=== PATIENT | male | born 1940 | race Caucasian/White ===

== ENCOUNTER 2017-05-14 14:17 | Inpatient (IN) | payer MEDICARE, OTHER ==
[~2017-05-14] VITALS: Ht 167.6 cm; Wt 58.0 kg
[~2017-05-14 14:17] MED LIST: LORAZEPAM 2 MG INJ ONE
[2017-05-14] MEDS ORDERED: LORAZEPAM 2 MG INJ ONE (14:26)
[2017-05-14] MEDS ORDERED: LEVETIRACETAM 500 MG (PMX) 100 ML IVPB ONE (14:30)
[2017-05-14] MEDS ORDERED: LORAZEPAM 2 MG INJ IV ONE ×3 (14:30→16:00)
[2017-05-14 14:38] LABS: ADD SCAN DIFF NO
[2017-05-14 14:40] LABS: BASOPHIL # 0.1 10^3/ul (0.0-0.1); BASOPHILS % 0.5 % (0.0-2.0); EOSINOPHILS % 0.1 % (0.0-7.0); HEMATOCRIT 46.4 % (42.0-52.0); LYMPHOCYTES # 4.2 10^3/ul (0.8-2.9); LYMPHOCYTES % 34.6 % (15.0-51.0); MEAN CORPUSCULAR HEMOGLOBIN 36.5 pg (29.0-33.0); MEAN CORPUSCULAR HGB CONC 32.3 g/dl (32.0-37.0); MEAN CORPUSCULAR VOLUME 112.9 fl (82.0-101.0); MEAN PLATELET VOLUME 9.2 fl (7.4-10.4); MONOCYTE # 0.7 10^3/ul (0.3-0.9); MONOCYTES % 5.3 % (0.0-11.0); NEUTROPHIL # 7.2 10^3/ul (1.6-7.5); NEUTROPHILS % 59.1 % (39.0-77.0); PLATELET COUNT 201 10^3/UL (140-415); RED BLOOD COUNT 4.11 10^6/ul (4.70-6.10); RED CELL DISTRIBUTION WIDTH 12.2 % (11.5-14.5); WHITE BLOOD COUNT 12.2 10^3/ul (4.8-10.8)
[2017-05-14 14:56] LABS: PARTIAL THROMBOPLASTIN TIME 25.2 Sec (25.0-35.0)
[2017-05-14 14:59] LABS: ALANINE AMINOTRANSFERASE 43 IU/L (13-69); ALBUMIN 5.6 g/dl (3.3-4.9); ALKALINE PHOSPHATASE 69 IU/L (42-121); ANION GAP 40 (8-16); ASPARTATE AMINO TRANSFERASE 76 IU/L (15-46); BILIRUBIN,INDIRECT 1.4 mg/dl (0-1.1); BILIRUBIN,TOTAL 1.4 mg/dl (0.2-1.3); BLOOD UREA NITROGEN 15 mg/dl (7-20); CHLORIDE 103 mmol/L (97-110); CREATININE 0.88 mg/dl (0.61-1.24); GLUCOSE 299 mg/dl (70-220); POTASSIUM 3.8 mmol/L (3.5-5.1); SODIUM 149 mmol/L (135-144); TOTAL PROTEIN 9.1 g/dl (6.1-8.1)
[2017-05-14 15:05] LABS: INR 1.07; PROTIME 13.9 Sec (12.2-14.2); PT RATIO 1.1
[2017-05-14 15:14] LABS: ETHANOL < 10.0 mg/dl
[2017-05-14 15:17] LABS: CARBON DIOXIDE 10 mmol/L (21-31)
--- NOTE | 2017-05-14 15:19 | RADRPT ---
PROCEDURE: XR Chest 1 View. CLINICAL INDICATION: Seizure TECHNIQUE: AP view of the chest was obtained. COMPARISON: None. FINDINGS: The heart size is within normal limits. Calcified atherosclerosis is noted in the aorta. The lungs are hyperexpanded. Diffuse mild interstitial prominence is seen in both lungs. Atelectasis versus mild patchy infiltrates are seen in the right upper lobe. Subsegmental atelectasis is noted at the right lung base and in the left upper lobe. The osseous structures are osteopenic, but appear grossl y intact. Degenerative changes are identified in both shoulders. IMPRESSION: Calcified atherosclerosis in the aorta. Hyperexpanded lungs with diffuse mild interstitial prominence in both lungs. Interstitial prominenc e could be chronic. Findings could reflect COPD. Atelectasis versus mild patchy infiltrates in the right upper lobe. Atelectasis at the right lung base and in the left upper lobe. RPTAT: AA .Filipe Cueva MD, MD Date Time Electronically viewed and signed by .Filipe Cueva MD, on 05/14/2017 15:19 .P/
[2017-05-14] MEDS ORDERED: ERGO500037 PO (15:22)
[2017-05-14] MEDS ORDERED: ASPI-664 PO (15:22)
[2017-05-14] MEDS ORDERED: ALEN70TA30 PO (15:23)
[2017-05-14] MEDS ORDERED: BUDE6HFA INHALATION (15:24)
[2017-05-14] MEDS ORDERED: FLUT16SP17 NASAL (15:25)
[2017-05-14] MEDS ORDERED: LEVE500T8 PO (15:26)
[2017-05-14] MEDS ORDERED: EZET10TA3 PO (15:26)
[2017-05-14 15:27] LABS: ADD UMIC YES; UR ASCORBIC ACID NEGATIVE (NEGATIVE); UR BACTERIA FEW /HPF (NONE SEEN); UR BILIRUBIN (Dip) NEGATIVE (NEGATIVE); UR BLOOD (Dip) NEGATIVE (NEGATIVE); UR CLARITY SLIGHTLY CLOUDY (CLEAR); UR COLOR AMBER (YELLOW); UR GLUCOSE (Dip) NEGATIVE (NEGATIVE); UR KETONES (Dip) 2+ mg/dL (NEGATIVE); UR LEUKOCYTE ESTERASE (Dip) NEGATIVE Leu/ul (NEGATIVE); UR MUCUS MODERATE /HPF (NONE SEEN); UR NITRITE (Dip) NEGATIVE (NEGATIVE); UR RBC 13 /HPF (0-5); UR SPECIFIC GRAVITY (Dip) 1.026 (1.003-1.030); UR TOTAL PROTEIN (Dip) 3+ mg/dl (NEGATIVE); UR UROBILINOGEN (Dip) 1+ mg/dL (NEGATIVE)
[2017-05-14] MEDS ORDERED: NIT4 SL (15:27)
[2017-05-14] MEDS ORDERED: ESCI20TA38 PO (15:28)
[2017-05-14] MEDS ORDERED: TIOT18CA INHALATION (15:28)
[2017-05-14] MEDS ORDERED: LINA145C PO (15:28)
[2017-05-14] MEDS ORDERED: VALS160T20 PO (15:29)
[2017-05-14] MEDS ORDERED: DEXL60CA2 PO (15:29)
[2017-05-14] MEDS ORDERED: MELO-109 PO (15:30)
[2017-05-14] MEDS ORDERED: LORA0.5T PO (15:30)
[2017-05-14] MEDS ORDERED: ICOS1CAP PO (15:31)
[2017-05-14] MEDS ORDERED: ATOR20TA38 PO (15:31)
[2017-05-14] MEDS ORDERED: CLON-379 PO (15:32)
[2017-05-14 15:48] LABS: BARBITURATES NEGATIVE (NEGATIVE); BENZODIAZEPINES NEGATIVE (NEGATIVE); CANNABINOIDS NEGATIVE (NEGATIVE); COCAINE NEGATIVE (NEGATIVE); OPIATES NEGATIVE (NEGATIVE)
--- NOTE | 2017-05-14 15:54 | RADRPT ---
PROCEDURE: CT Brain without contrast. CLINICAL INDICATION: Seizure TECHNIQUE: CT scan of the brain was performed on a multidetector high-resolution CT scan. Axial im aging was obtained of the brain without contrast administration. Coronal and sagittal reformatted i mages were obtained from the axial source images. Standard CT scan of the head without contrast prot ocols were performed. The total exam CTDI equals 40.49 mGy and the total exam DLP equals 841.95 mGy-cm. One or more of the following dose reduction techniques were used: - Automated exposure control. - Adjustment of the mA and/or kV according to patient size. Use of iterative reconstruction technique. COMPARISON: None. FINDINGS: The ventricular system and peripheral CSF spaces are proportionately prominent consisten t with moderate generalized cerebral volume loss. Negative for intracranial masses hemorrhages or m idline shift. There is extensive periventricular deep white matter changes that is nonspecific and consistent with chronic microvascular ischemic disease. The ward-white matter junction is unremarka ble. The bones and calvarium are intact. There is bilateral maxillary sinus mucous retention cyst. The paranasal sinuses are are otherwise unremarkable. Mastoids are unremarkable. IMPRESSION: 1. No evidence of intracranial masses hemorrhages or midline shift. 2. Moderate generalized cerebral volume loss and extensive nonspecific chronic microvascular ischem ic changes. 3. An MRI of the brain may be helpful for further evaluation. RPTAT:AAJJ Physician Jose Alfredo Date Time Electronically viewed and signed by Physician Jose Alfredo on 05/14/2017 15:54 BM/
[2017-05-14 16:11] LABS: AADO2 Arterial 111.8 mmHg (7.0-24.0); Allen Test ACCEPTAB; Arterial Base Excess -2.2 mmol/L (-3.0-3); Arterial COHb 0.9 % (0.0-3.0); Arterial Fraction of Oxyhgb 92.4 % (93.0-99.0); Arterial HCO3 22.9 mmol/L (22.0-26.0); Arterial MetHb 0.4 % (0.0-1.5); Arterial Total Hemglobin 15.5 g/dl (12.0-18.0); MODE NASAL CANNULA
--- NOTE | 2017-05-14 18:16 | HP ---
Date/Time of Note Date/Time of Note DATE: 05/14/17 TIME: 17:58 Assessment/Plan VTE Prophylaxis VTE Prophylaxis Intervention: heparin Assessment/Plan Assessment/Plan 77-year-old male who who presented with seizures managed as follows: 1. Status epilepticus/breakthrough seizures 2 acute encephalopathy secondary to seizures open bracket post ictal state] 3. Hypertension: Suboptimal control 4. Sepsis secondary to UTI 5. Probable mild hyperosmolar non-ketotic hypoglycemia contributing to #1 6. Hyperbilirubinemia 7. Developing aspiration pneumonia 8. Heavy alcohol and tobacco user PLAN: Admit ICU Patient is high risk to develop respiratory failure, low threshold for endotracheal intubation if necessary. Patient may also benefit from NG tube placement if intubated. Repeat stat BMP to assess if patient requires insulin drip, further interventions after result is reviewed Empiric antibiotics, blood cultures, urine cultures Serial lab work every 4 hours interventions that indicated Seizure precautions/Keppra therapy/EEG/neurology consult/as needed Ativan IV on N.p.o. for now/as needed antihypertensives HPI/ROS Admit Date/Time Admit Date/Time 05/04/17 . Hx of Present Illness 77-year-old male with a history of seizure disorder which started 8 months ago after he was found to have a tiny intracerebral bleed. Since then he has been on Keppra and per his family has been weaned down to 1 tablet twice daily. The patient unfortunately also has a history of heavy alcohol alcohol as well as tobacco use. Per his family he had been drinking heavily over the last 2 days, his choice of drink is vodka, and has had 6 seizures in total between home and in the emergency room. He has received multiple doses of Ativan and is currently postictal, he is barely responsive but he is maintaining his airway, I would be called to admit. Per the family had not complained of any fever cough and shortness of breath chest pain prior to seizure happening. No further history obtainable due to patient's obtunded status. ROS unobtainable PMH/Family/Social Past Medical History * Tiny cerebral bleed * Subsequent seizure d/o Past Surgical History Past Surgical Hx: no surgical history Family History Significant Family History: other (No family hx of seizures) Social History Alcohol Use: heavy Smoking Status: Current every day smoker Drug Use: none Exam/Review of Systems Vital Signs Vitals Vital Signs Date Time Temp Pulse Resp B/P Pulse Ox O2 Delivery O2 Flow Rate FiO2 05/14/17 17:46 97 18 160/101 94 Nasal Cannula 6.0 05/14/17 14:24 97.5 Exam Constitutional: other (asthenic, ), No alert, No oriented Psych: other (unable to assess) Head: atraumatic Eyes: PERRL, icteric (mildly) ENMT: No intubated, No mucosa pink and moist Neck: supple Respiratory: diminished breath sounds, No labored breathing, No wheezing Cardiovascular: regular rate and rhythm, No murmurs/extra sounds Gastrointestinal: bowel sounds, non-tender, soft Genitourinary - Male: nl penis, nl scrotum Extremities: No edema Neurological: other (obtunded), No nl mental status Labs Result Diagram: 05/14/17 1431 05/14/17 1431 Procedures Procedures Laboratory Tests Test 05/14/17 14:31 05/14/17 14:40 05/14/17 15:59 White Blood Count 12.210^3/ul Red Blood Count 4.1110^6/ul Hemoglobin 15.0g/dl Hematocrit 46.4% Mean Corpuscular Volume 112.9fl Mean Corpuscular Hemoglobin 36.5pg Mean Corpuscular Hemoglobin Concent 32.3g/dl Red Cell Distribution Width 12.2% Platelet Count 79455^3/UL Mean Platelet Volume 9.2fl Neutrophils % 59.1% Lymphocytes % 34.6% Monocytes % 5.3% Eosinophils % 0.1% Basophils % 0.5% Nucleated Red Blood Cells % 0.0/100WBC Neutrophils # 7.210^3/ul Lymphocytes # 4.210^3/ul Monocytes # 0.710^3/ul Eosinophils # 0.010^3/ul Basophils # 0.110^3/ul Nucleated Red Blood Cells # 0.010^3/ul Prothrombin Time 13.9Sec Prothrombin Time Ratio 1.1 INR International Normalized Ratio 1.07 Activated Partial Thromboplast Time 25.2Sec Sodium Level 149mmol/L Potassium Level 3.8mmol/L Chloride Level 103mmol/L Carbon Dioxide Level 10mmol/L Anion Gap 40 Blood Urea Nitrogen 15mg/dl Creatinine 0.88mg/dl Glucose Level 299mg/dl Calcium Level 11.0mg/dl Total Bilirubin 1.4mg/dl Direct Bilirubin 0.00mg/dl Indirect Bilirubin 1.4mg/dl Aspartate Amino Transf (AST/SGOT) 76IU/L Alanine Aminotransferase (ALT/SGPT) 43IU/L Alkaline Phosphatase 69IU/L Total Protein 9.1g/dl Albumin 5.6g/dl Globulin 3.50g/dl Albumin/Globulin Ratio 1.60 Ethyl Alcohol Level < 10.0mg/dl Urine Color [facility] Urine Clarity SLIGHTLY CLOUDY Urine pH 5.0 Urine Specific [place] 1.026 Urine Ketones 2+mg/dL Urine Nitrite NEGATIVEmg/dL Urine Bilirubin NEGATIVEmg/dL Urine Urobilinogen 1+mg/dL Urine Leukocyte Esterase NEGATIVELeu/ul Urine Microscopic RBC 13/HPF Urine Microscopic WBC 2/HPF Urine Bacteria FEW/HPF Urine Mucus MODERATE/HPF Urine Hemoglobin NEGATIVEmg/dL Urine Glucose NEGATIVEmg/dL Urine Total Protein 3+mg/dl Urine Opiates Screen NEGATIVE Urine Barbiturates NEGATIVE Urine Amphetamines Screen NEGATIVE Urine Benzodiazepines Screen NEGATIVE Urine Cocaine Screen NEGATIVE Urine Cannabinoids NEGATIVE Blood Gas Specimen Source Blood arterial Arterial Blood Date Drawn 05/14/2017 4:00:11 PM Arterial Blood pH (Temp corrected) 7.372 Arterial Blood pCO2 (Temp correct) 40.3mmhg Arterial Blood pO2 (Temp corrected) 76.4mmHG Arterial Blood HCO3 22.9mmol/L Arterial Blood Base Excess -2.2mmol/L Arterial Blood Oxygen Saturation 93.6mmHG Beto Test ACCEPTAB Arterial Blood Gas Puncture Site Right Radial Arterial Blood Carboxyhemoglobin 0.9% Arterial Blood Methemoglobin 0.4% Blood Gas A-a O2 Differential 111.8mmHg Oxyhemoglobin Percent 92.4% Total Hemoglobin 15.5g/dl Blood Gas Temperature 37.0C Blood Gas Actual Respiration Rate 22 Blood Gas Modality NASAL CANNULA FiO2 33.0% Blood Gas Notified Whom KB Blood Gas Notified Time 05/14/2017 4:11:08 PM Current Medications Medications (Trade) Dose Ordered Sig/[place] Route PRN Reason Start Time Stop Time Status Last Admin Dose Admin Lorazepam (Ativan) 1 mg ONCE ONCE IV 05/14/17 14:30 05/14/17 14:31 DC 05/14/17 14:44 1 MG Lorazepam 1 mg 1 mg ONCE ONCE IV 05/14/17 14:30 05/14/17 14:31 DC 05/14/17 14:44 1 MG Levetiracetam (Keppra 500 Mg/ 100ml (Pmx)) 100 ml @ 400 mls/hr ONCE ONCE IVPB 05/14/17 14:30 05/14/17 14:44 DC 05/14/17 14:50 400 MLS/HR Lorazepam (Ativan) 2 mg ONCE ONCE IV 05/14/17 16:00 05/14/17 16:01 DC 05/14/17 15:51 2 MG PROCEDURE: XR Chest 1 View. CLINICAL INDICATION: Seizure TECHNIQUE: AP view of the chest was obtained. COMPARISON: None. FINDINGS: The heart size is within normal limits. Calcified atherosclerosis is noted in the aorta. The lungs are hyperexpanded. Diffuse mild interstitial prominence is seen in both lungs. Atelectasis versus mild patchy infiltrates are seen in the right upper lobe. Subsegmental atelectasis is noted at the right lung base and in the left upper lobe. The osseous structures are osteopenic, but appear grossly intact. Degenerative changes are identified in both shoulders. IMPRESSION: Calcified atherosclerosis in the aorta. Hyperexpanded lungs with diffuse mild interstitial prominence in both lungs. Interstitial prominence could be chronic. Findings could reflect COPD. Atelectasis versus mild patchy infiltrates in the right upper lobe. Atelectasis at the right lung base and in the left upper lobe. PROCEDURE: CT Brain without contrast. CLINICAL INDICATION: Seizure TECHNIQUE: CT scan of the brain was performed on a multidetector high- resolution CT scan. Axial imaging was obtained of the brain without contrast administration. Coronal and sagittal reformatted images were obtained from the axial source images. Standard CT scan of the head without contrast protocols were performed. The total exam CTDI equals 40.49 mGy and the total exam DLP equals 841.95 mGy- cm. One or more of the following dose reduction techniques were used: - Automated exposure control. - Adjustment of the mA and/or kV according to patient size. Use of iterative reconstruction technique. COMPARISON: None. FINDINGS: The ventricular system and peripheral CSF spaces are proportionately prominent consistent with moderate generalized cerebral volume loss. Negative for intracranial masses hemorrhages or midline shift. There is extensive periventricular deep white matter changes that is nonspecific and consistent with chronic microvascular ischemic disease. The ward-white matter junction is unremarkable. The bones and calvarium are intact. There is bilateral maxillary sinus mucous retention cyst. The paranasal sinuses are are otherwise unremarkable. Mastoids are unremarkable. IMPRESSION: 1. No evidence of intracranial masses hemorrhages or midline shift. 2. Moderate generalized cerebral volume loss and extensive nonspecific chronic microvascular ischemic changes. 3. An MRI of the brain may be helpful for further evaluation. RPTAT:AAJJ Physician Jose Alfredo Date Time Electronically viewed and signed by Physician Jose Alfredo on 05/14/2017 15:54 BM/ CC: BELTRAN BRITTON MD, BOLATITO M. May 14, 2017 18:16
[2017-05-14] MEDS ORDERED: SOD CHLORIDE 0.45% 1,000 ML IV SCH (18:30)
[2017-05-14] MEDS ORDERED: ONDANSETRON 4 MG INJ IV PRN (18:30)
[2017-05-14] MEDS ORDERED: SOD CHLORIDE 0.9% 1,000 ML IV SCH (18:30)
[2017-05-14] MEDS ORDERED: INSULIN HUMAN REGULAR 100 UNIT in SOD CHLORIDE 0.9% 99 ML IV SCH (18:30)
[2017-05-14] MEDS ORDERED: ACCU-CHEK XX SCH (18:30)
[2017-05-14] MEDS ORDERED: DEXTROSE 50% 50 ML SYRINGE IV PRN ×2 (18:30)
[2017-05-14] MEDS ORDERED: LORAZEPAM 2 MG INJ IV PRN (18:30)
[2017-05-14] MEDS ORDERED: PIPER-TAZO 3.375 GM IV (PMX) 100 ML IVPB ONE (19:00)
--- NOTE | 2017-05-14 19:01 | ERA ---
ER Documentation Chief Complaint Date/Time DATE: 05/14/17 TIME: On arrival Chief Complaint SEIZURE HPI The patient is a 77-year-old male, presenting to the ER because of recurrent seizure. The history was obtained from hardware engineering manager initially, it was later obtained from the daughter who came to the ER. He was well, been drinking over the weekend. When the daughter left him around 1:30 PM, he was well. He later had a seizure at home, the then called 911. This usually lasted for approximately 1 minute, generalized tonic-clonic. He had another seizure in 2 to the ER witnessed by EMS. He had another 3 seizure in the ER that was aborted with Ativan 1 mg IV, 1 mg IV, and 2 mg IV. He remains postictal in the emergency department. His last seizure was a year ago. He has been taking Keppra for his seizure disorder. Has not been sick recently Past medical history: Seizure disorder, hypertension, dyslipidemia ROS All systems reviewed and are negative except as per history of present illness. Medications Home Meds Reported Medications Clonidine Hcl* (Clonidine Hcl*) 0.1 Mg Tab, 0.1 MG PO DAILY Y for HTN, TAB 05/14/17 Icosapent Ethyl (VASCEPA) 1 Gm Capsule, 1 GM PO BID, CAP 05/14/17 Atorvastatin Calcium* (Atorvastatin Calcium*) 20 Mg Tablet, 20 MG PO QHS, #30 TAB 05/14/17 Lorazepam* (Lorazepam*) 0.5 Mg Tablet, 0.5 MG PO HS Y for ANXIETY, TAB 05/14/17 Meloxicam* (Meloxicam*) 7.5 Mg Tablet, 7.5 MG PO DAILY, #30 TAB 05/14/17 Valsartan* (Diovan*) 160 Mg Tablet, 160 MG PO DAILY, TAB 05/14/17 Dexlansoprazole (Dexilant) 60 Mg , 60 MG PO DAILY, #30 CAP 05/14/17 Linaclotide (LINZESS) 145 Mcg Capsule, 145 MCG PO DAILY, #30 CAP 05/14/17 Escitalopram Oxalate* (Escitalopram Oxalate*) 20 Mg Tablet, 20 MG PO DAILY, #30 TAB 05/14/17 Tiotropium [place]* (Spiriva*) 18 Mcg Cap.w.dev, 1 CAP INHALATION DAILY, #30 CAP 05/14/17 Nitroglycerin* (Nitrostat*) 0.4 Mg Tab.subl, 0.4 MG SL Q5MIN Y for CHEST PAIN, BOTTLE 05/14/17 Levetiracetam* (Levetiracetam*) 500 Mg Tablet, 500 MG PO BID, TAB 05/14/17 Ezetimibe* (Zetia*) 10 Mg Tablet, 10 MG PO DAILY, TAB 05/14/17 Fluticasone Propionate* (Fluticasone Propionate* Nasal) 50 Mcg/[place] - 16 Gm [place].susp, 1 SPRAY NASAL BID, #1 BOTTLE TO EACH NOSTRIL 05/14/17 Budesonide-Formoterol Fumarate* (Symbicort*) 160-4.5 Hfa.aer.ad, 2 PUFF INHALATION BID, #1 EACH 05/14/17 Alendronate Sodium* (Fosamax*) 70 Mg Tablet, 70 MG PO Q7D, #4 TAB 05/14/17 Ergocalciferol (Vitamin D2) (VITAMIN D2) 50,000 Unit Capsule, 26347 UNIT PO Q7D , CAP 05/14/17 Aspirin* (Aspirin* EC) 81 Mg Tablet.dr, 81 MG PO DAILY, TAB 05/14/17 Allergies Allergies: Coded Allergies: No Known Allergy (Unverified , 05/14/17) PMhx/Soc Hx Miscellaneous Medical Probl: Yes (SZ) Smoking Status: Unknown if ever smoked Physical Exam Vitals Vital Signs Date Time Temp Pulse Resp B/P Pulse Ox O2 Delivery O2 Flow Rate FiO2 05/14/17 17:46 97 18 160/101 94 Nasal Cannula 6.0 05/14/17 16:21 117 18 149/87 94 Nasal Cannula 6.0 05/14/17 15:27 120 18 137/90 94 Nasal Cannula 6.0 05/14/17 15:10 125 18 145/90 96 Nasal Cannula 6.0 05/14/17 14:59 132 18 148/92 98 Non Rebreather 15.0 05/14/17 14:52 98 15.0 05/14/17 14:44 139 32 155/95 98 Non Rebreather 15.0 05/14/17 14:33 162 32 170/101 94 Non Rebreather 05/14/17 14:24 97.5 160 20 198/109 93 Physical Exam Const: Postictal when arrived Head: Atraumatic. Eyes: Normal Conjunctiva. ENT: Normal External Ears, Nose and Mouth. Neck: Full range of motion. No meningismus. Resp: Clear to auscultation anterior and lateral Cardio: Regular but tachycardic Abd: Soft, non distended, normal bowel sounds, non tender. Skin: No petechiae or rashes. Back: No midline or flank tenderness. Ext: No cyanosis, or edema. Neur: Unable to perform due to his condition Psych: Unable to perform due to his condition Result Diagram: 05/14/17 1431 05/14/17 1431 Results 24 hrs Laboratory Tests Test 05/14/17 14:31 05/14/17 14:40 05/14/17 15:59 White Blood Count 12.210^3/ul Red Blood Count 4.1110^6/ul Hemoglobin 15.0g/dl Hematocrit 46.4% Mean Corpuscular Volume 112.9fl Mean Corpuscular Hemoglobin 36.5pg Mean Corpuscular Hemoglobin Concent 32.3g/dl Red Cell Distribution Width 12.2% Platelet Count 20048^3/UL Mean Platelet Volume 9.2fl Neutrophils % 59.1% Lymphocytes % 34.6% Monocytes % 5.3% Eosinophils % 0.1% Basophils % 0.5% Nucleated Red Blood Cells % 0.0/100WBC Neutrophils # 7.210^3/ul Lymphocytes # 4.210^3/ul Monocytes # 0.710^3/ul Eosinophils # 0.010^3/ul Basophils # 0.110^3/ul Nucleated Red Blood Cells # 0.010^3/ul Prothrombin Time 13.9Sec Prothrombin Time Ratio 1.1 INR International Normalized Ratio 1.07 Activated Partial Thromboplast Time 25.2Sec Sodium Level 149mmol/L Potassium Level 3.8mmol/L Chloride Level 103mmol/L Carbon Dioxide Level 10mmol/L Anion Gap 40 Blood Urea Nitrogen 15mg/dl Creatinine 0.88mg/dl Glucose Level 299mg/dl Calcium Level 11.0mg/dl Total Bilirubin 1.4mg/dl Direct Bilirubin 0.00mg/dl Indirect Bilirubin 1.4mg/dl Aspartate Amino Transf (AST/SGOT) 76IU/L Alanine Aminotransferase (ALT/SGPT) 43IU/L Alkaline Phosphatase 69IU/L Total Protein 9.1g/dl Albumin 5.6g/dl Globulin 3.50g/dl Albumin/Globulin Ratio 1.60 Ethyl Alcohol Level < 10.0mg/dl Urine Color PHUC Urine Clarity SLIGHTLY CLOUDY Urine pH 5.0 Urine Specific [place] 1.026 Urine Ketones 2+mg/dL Urine Nitrite NEGATIVEmg/dL Urine Bilirubin NEGATIVEmg/dL Urine Urobilinogen 1+mg/dL Urine Leukocyte Esterase NEGATIVELeu/ul Urine Microscopic RBC 13/HPF Urine Microscopic WBC 2/HPF Urine Bacteria FEW/HPF Urine Mucus MODERATE/HPF Urine Hemoglobin NEGATIVEmg/dL Urine Glucose NEGATIVEmg/dL Urine Total Protein 3+mg/dl Urine Opiates Screen NEGATIVE Urine Barbiturates NEGATIVE Urine Amphetamines Screen NEGATIVE Urine Benzodiazepines Screen NEGATIVE Urine Cocaine Screen NEGATIVE Urine Cannabinoids NEGATIVE Blood Gas Specimen Source Blood arterial Arterial Blood Date Drawn 05/14/2017 4:00:11 PM Arterial Blood pH (Temp corrected) 7.372 Arterial Blood pCO2 (Temp correct) 40.3mmhg Arterial Blood pO2 (Temp corrected) 76.4mmHG Arterial Blood HCO3 22.9mmol/L Arterial Blood Base Excess -2.2mmol/L Arterial Blood Oxygen Saturation 93.6mmHG Beto Test ACCEPTAB Arterial Blood Gas Puncture Site Right Radial Arterial Blood Carboxyhemoglobin 0.9% Arterial Blood Methemoglobin 0.4% Blood Gas A-a O2 Differential 111.8mmHg Oxyhemoglobin Percent 92.4% Total Hemoglobin 15.5g/dl Blood Gas Temperature 37.0C Blood Gas Actual Respiration Rate 22 Blood Gas Modality NASAL CANNULA FiO2 33.0% Blood Gas Notified Whom KB Blood Gas Notified Time 05/14/2017 4:11:08 PM Current Medications Medications (Trade) Dose Ordered Sig/[place] Route PRN Reason Start Time Stop Time Status Last Admin Dose Admin Lorazepam (Ativan) 1 mg ONCE ONCE IV 05/14/17 14:30 05/14/17 14:31 DC 05/14/17 14:44 Lorazepam 1 mg 1 mg ONCE ONCE IV 05/14/17 14:30 05/14/17 14:31 DC 05/14/17 14:44 Levetiracetam (Keppra 500 Mg/ 100ml (Pmx)) 100 ml @ 400 mls/hr ONCE ONCE IVPB 05/14/17 14:30 05/14/17 14:44 DC 05/14/17 14:50 Lorazepam 2 mg 2 mg ONCE ONCE IV 05/14/17 16:00 05/14/17 16:01 DC 05/14/17 15:51 Sodium Chloride 1,000 ml @ 100 mls/hr Q10H IV 05/14/17 18:30 05/14/17 18:30 DC Levetiracetam (Keppra 500 Mg/ 100ml (Pmx)) 100 ml @ 400 mls/hr Q12 IVPB 05/14/17 21:00 UNV Lorazepam (Ativan) 2 mg Q2H PRN IV seizures 05/14/17 18:30 Famotidine (Pepcid Iv) 20 mg BID IV 05/14/17 21:00 Ondansetron HCl 4 mg 4 mg Q6H PRN IV NAUSEA AND/OR VOMITING 05/14/17 18:30 Sodium Chloride 1,000 ml @ 100 mls/hr Q10H IV 05/14/17 18:30 Piperacillin Sod/ Tazobactam Sod (Zosyn 3.375gm/ 100 ml (Pmx)) 100 ml @ 200 mls/hr Q8 IVPB 05/14/17 22:00 Dextrose (D50w Syringe) 50 ml Q15M PRN IV For BS 50 or less 05/14/17 18:30 UNV Dextrose 25 ml 25 ml Q15M PRN IV BS between 50-70 05/14/17 18:30 UNV Insulin Human Regular/Sodium Chloride (Novolin-R/NS) 100 ml @ 0 mls/hr DKA PROTOCOL IV 05/14/17 18:30 UNV Diagnostic Test (Pha) (Accu-Chek) 1 ea Q1H XX 05/14/17 18:30 UNV Miscellaneous Information (* Miscellaneous Pharmacy Order) HYPOGLYCEMIA TREATMENT HYPOGLYCEM PROTOCOL PRN XX Hypoglycemia (BS < 70) 05/14/17 18:30 UNV Procedures/[place] [id number] Radiology Main Line: [phone] DIAGNOSTIC IMAGING REPORT Patient: FLAQUITO CAROLINA : 1940 Age: 77 Sex: M MR #: [id number] DOS: 05/14/17 1428 Ordering MD: BELTRAN BRITTON MD Location: E/R Room/Bed: PROCEDURE: XR Chest 1 View. CLINICAL INDICATION: Seizure TECHNIQUE: AP view of the chest was obtained. COMPARISON: None. FINDINGS: The heart size is within normal limits. Calcified atherosclerosis is noted in the aorta. The lungs are hyperexpanded. Diffuse mild interstitial prominence is seen in both lungs. Atelectasis versus mild patchy infiltrates are seen in the right upper lobe. Subsegmental atelectasis is noted at the right lung base and in the left upper lobe. The osseous structures are osteopenic, but appear grossly intact. Degenerative changes are identified in both shoulders. IMPRESSION: Calcified atherosclerosis in the aorta. Hyperexpanded lungs with diffuse mild interstitial prominence in both lungs. Interstitial prominence could be chronic. Findings could reflect COPD. Atelectasis versus mild patchy infiltrates in the right upper lobe. Atelectasis at the right lung base and in the left upper lobe. RPTAT: AA .Filipe Cueva MD, MD Date Time Electronically viewed and signed by .Filipe Cueva MD, MD on 05/14/2017 15:19 .P/ CC: BELTRAN BRITTON MD [place] [id number] Radiology Main Line: [phone] DIAGNOSTIC IMAGING REPORT Patient: FLAQUITO CAROLINA : 1940 Age: 77 Sex: M MR #: [id number] DOS: 05/14/17 1428 Ordering MD: BELTRAN BRITTON MD Location: E/R Room/Bed: PROCEDURE: CT Brain without contrast. CLINICAL INDICATION: Seizure TECHNIQUE: CT scan of the brain was performed on a multidetector high- resolution CT scan. Axial imaging was obtained of the brain without contrast administration. Coronal and sagittal reformatted images were obtained from the axial source images. Standard CT scan of the head without contrast protocols were performed. The total exam CTDI equals 40.49 mGy and the total exam DLP equals 841.95 mGy- cm. One or more of the following dose reduction techniques were used: - Automated exposure control. - Adjustment of the mA and/or kV according to patient size. Use of iterative reconstruction technique. COMPARISON: None. FINDINGS: The ventricular system and peripheral CSF spaces are proportionately prominent consistent with moderate generalized cerebral volume loss. Negative for intracranial masses hemorrhages or midline shift. There is extensive periventricular deep white matter changes that is nonspecific and consistent with chronic microvascular ischemic disease. The ward-white matter junction is unremarkable. The bones and calvarium are intact. There is bilateral maxillary sinus mucous retention cyst. The paranasal sinuses are are otherwise unremarkable. Mastoids are unremarkable. IMPRESSION: 1. No evidence of intracranial masses hemorrhages or midline shift. 2. Moderate generalized cerebral volume loss and extensive nonspecific chronic microvascular ischemic changes. 3. An MRI of the brain may be helpful for further evaluation. RPTAT:AAJJ Physician Jose Alfredo Date Time Electronically viewed and signed by Physician Jose Alfredo on 05/14/2017 15:54 BM/ CC: BELTRAN BRITTON MD EKG: Read by emergency physician Rate/Rhythm: Sinus tachycardia 173 beats/min QRS, ST, T-waves: No ST elevation, no T inversion, shortened GA interval, LAD , septal Q waves Impression: Abnormal EKG MEDICAL MAKING DECISION: The patient is a 77-year-old male, presenting with acute status epilepticus, acute encephalopathy, acute mental acidosis, acute hyperglycemia, suspected aspiration pneumonia. He went treated with Ativan 1 mg IV, 1 mg IV, 2 mg IV approximately 3 minutes apart due to seizure and Keppra 500 mg IV with good response. He had a Nicole catheter inserted, treated empirically for suspected aspiration pneumonia with Zosyn IV and 1 L normal saline. He also has acute hyperglycemia, most likely due to acute stress versus new onset diabetes He remains posterior to the emergency department, and was intact. The differential diagnoses considered include but are not limited to medication non-compliance, alcohol intoxication or withdrawal, drug intoxication or withdrawal, endocrine disorder, trauma, CVA, tumor, metabolic encephalopathy, septic encephalopathy. Critical Care: Time: 35 minutes excluding all billable procedures. Treatments/Evaluations: Close monitoring and treatment of unstable vital signs, cardiorespiratory, and neurologic status, while maintaining tight balance of fluid, respiratory, and cardiac interventions. Departure Diagnosis: Primary Impression: Status epilepticus Additional Impressions: Encephalopathy Pneumonia Metabolic acidosis Hyperglycemia Abnormal LFTs Condition: Critical Comments I discussed the findings with the patient. I discussed the patient with the on- call hospitalist Dr. Pope at 4 PM who was made aware of the lab, the treatment, the patient condition. The patient is admitted to ICU BELTRAN BRITTON MD May 14, 2017 19:01
[2017-05-14] MEDS ORDERED: SOD CHLORIDE 0.9% 1,000 ML IV ONE (19:30)
[2017-05-14] MEDS ORDERED: LEVETIRACETAM 500 MG (PMX) 100 ML IVPB SCH (21:00)
--- NOTE | 2017-05-14 21:29 | CONS ---
Date/Time of Note Date/Time of Note DATE: 05/14/17 TIME: 21:17 Assessment/Plan Assessment/Plan Chief Complaint/Hosp Course PHYSICAL EXAMINATION: GENERAL: Not in acute distress, lying in bed. HEENT: Normocephalic, atraumatic head. NECK: No carotid bruits. No thyromegaly. LUNGS: Clear to auscultation bilaterally. CARDIAC: Normal cardiac rhythm and sounds. ABDOMEN: Soft. EXTREMITIES: No cyanosis, clubbing, or edema. Tenderness to palpation in the right buttock and lumbar spinous processes. NEUROLOGIC: He is lethargic, arousable by voice, looks bilaterally, not verbal. Cranial nerve examination shows intact visual munoz bilaterally to threat. Pupils round, reactive to light from 3 to 2 mm bilaterally. Extraocular movements intact without nystagmus. Symmetrical face. Preserved facial strength and sensation. Corneals and gag OK. Motor strength examination is preserved in all extremities. Normal bulk, tone. Moves all extremities symmetrically to pain. Deep tendon reflexes 1+ upper extremities, absent in lower extremities. Downgoing toes bilaterally. No tremor. IMPRESSION: Seizure d/o. ETOH abuse. Increase Keppra 1500 bid. EEG no ongoing seizures, c/w encephalopathy. Watch for ETOH withdrawal, consider small benzodiazepines Problems: Consultation Date/Type/Reason Admit Date/Time 05/04/17 . Type of Consultation: neurology Hx of Present Illness 77 y/o with hx of seizures in April 2016 and few years prior, in May was in [facility] , had small right parietal ischemic CVA. Started on keppra 500 bid, no seizures since. Binge drinking x last 3 days. Vomited today. Multiple seizures today. Past Medical History a.fib Medical History: coronary artery disease, hypertension Family History Significant Family History: no pertinent family hx Social History Alcohol Use: heavy Smoking Status: Current every day smoker Drug Use: none Exam/Review of Systems Vital Signs Vitals Vital Signs Date Time Temp Pulse Resp B/P Pulse Ox O2 Delivery O2 Flow Rate FiO2 05/14/17 20:38 105 19 160/97 97 Nasal Cannula 5.0 05/14/17 14:24 97.5 Results Result Diagram: 05/14/17 1431 05/14/17 1431 Results 24 hrs Laboratory Tests Test 05/14/17 14:31 05/14/17 14:40 05/14/17 15:59 05/14/17 19:53 White Blood Count 12.2 H Red Blood Count 4.11 L Hemoglobin 15.0 Hematocrit 46.4 Mean Corpuscular Volume 112.9 H Mean Corpuscular Hemoglobin 36.5 H Mean Corpuscular Hemoglobin Concent 32.3 Red Cell Distribution Width 12.2 Platelet Count 201 Mean Platelet Volume 9.2 Neutrophils % 59.1 Lymphocytes % 34.6 Monocytes % 5.3 Eosinophils % 0.1 Basophils % 0.5 Nucleated Red Blood Cells % 0.0 Neutrophils # 7.2 Lymphocytes # 4.2 H Monocytes # 0.7 Eosinophils # 0.0 Basophils # 0.1 Nucleated Red Blood Cells # 0.0 Prothrombin Time 13.9 Prothrombin Time Ratio 1.1 INR International Normalized Ratio 1.07 Activated Partial Thromboplast Time 25.2 Sodium Level 149 H Potassium Level 3.8 Chloride Level 103 Carbon Dioxide Level 10 L Anion Gap 40 H Blood Urea Nitrogen 15 Creatinine 0.88 Glucose Level 299 H Calcium Level 11.0 H Total Bilirubin 1.4 H Direct Bilirubin 0.00 Indirect Bilirubin 1.4 H Aspartate Amino Transf (AST/SGOT) 76 H Alanine Aminotransferase (ALT/SGPT) 43 Alkaline Phosphatase 69 Total Protein 9.1 H Albumin 5.6 H Globulin 3.50 H Albumin/Globulin Ratio 1.60 Ethyl Alcohol Level < 10.0 Urine Color PHUC Urine Clarity SLIGHTLY CLOUDY A Urine pH 5.0 Urine Specific [place] 1.026 Urine Ketones 2+ H Urine Nitrite NEGATIVE Urine Bilirubin NEGATIVE Urine Urobilinogen 1+ H Urine Leukocyte Esterase NEGATIVE Urine Microscopic RBC 13 H Urine Microscopic WBC 2 Urine Bacteria FEW A Urine Mucus MODERATE Urine Hemoglobin NEGATIVE Urine Glucose NEGATIVE Urine Total Protein 3+ H Urine Opiates Screen NEGATIVE Urine Barbiturates NEGATIVE Urine Amphetamines Screen NEGATIVE Urine Benzodiazepines Screen NEGATIVE Urine Cocaine Screen NEGATIVE Urine Cannabinoids NEGATIVE Blood Gas Specimen Source Blood arterial Arterial Blood Date Drawn 05/14/2017 4:00:11 PM Arterial Blood pH (Temp corrected) 7.372 Arterial Blood pCO2 (Temp correct) 40.3 Arterial Blood pO2 (Temp corrected) 76.4 L Arterial Blood HCO3 22.9 Arterial Blood Base Excess -2.2 Arterial Blood Oxygen Saturation 93.6 L Beto Test ACCEPTAB Arterial Blood Gas Puncture Site Right Radial Arterial Blood Carboxyhemoglobin 0.9 Arterial Blood Methemoglobin 0.4 Blood Gas A-a O2 Differential 111.8 H Oxyhemoglobin Percent 92.4 L Total Hemoglobin 15.5 Blood Gas Temperature 37.0 Blood Gas Actual Respiration Rate 22 Blood Gas Modality NASAL CANNULA FiO2 33.0 Blood Gas Notified Whom KB Blood Gas Notified Time 05/14/2017 4:11:08 PM Bedside Glucose 181 Medications Medications Current Medications Lorazepam (Ativan) 2 mg Q2H PRN IV seizures; Start 05/14/17 at 18:30 Famotidine (Pepcid Iv) 20 mg BID IV ; Start 05/14/17 at 21:00 Ondansetron HCl 4 mg 4 mg Q6H PRN IV NAUSEA AND/OR VOMITING; Start 05/14/17 at 18:30 Sodium Chloride (1/2 NS) 1,000 ml @ 100 mls/hr Q10H IV Last administered on 19:30; Admin Dose 100 MLS/HR; Start 05/14/17 at 18:30 Dextrose (D50w Syringe) 50 ml Q15M PRN IV For BS 50 or less; Start 05/14/17 at 18:30 Dextrose (D50w Syringe) 25 ml Q15M PRN IV BS between 50-70; Start 05/14/17 at 18:30 Diagnostic Test (Pha) 1 ea 1 ea Q1H XX Last administered on 05/14/17 18:30; Admin Dose 1 EA; Start 05/14/17 at 18:30 Piperacillin Sod/ Tazobactam Sod 100 ml @ 200 mls/hr Q8 IVPB ; Start 05/15/17 at 06:00 Multivitamins 10 ml/Thiamine HCl 100 mg/Folic Acid 1 mg/Sodium Chloride 1,011.2 ml @ 25 mls/hr DAILY@09 IVPB ; Start 05/15/17 at 09:00; Status UNV Levetiracetam (Keppra 1,500mg/ 100ml (Pmx)) 100 ml @ 460 mls/hr BID IVPB ; Start 05/14/17 at 21:00; Status KRISTEN CAREY MD May 14, 2017 21:27
[2017-05-14] MEDS ORDERED: PIPER-TAZO 3.375 GM IV (PMX) 100 ML IVPB SCH (22:00)
[2017-05-14 22:07] LABS: CALCIUM 9.5 mg/dl (8.4-10.2); CREATININE 0.68 mg/dl (0.61-1.24); POTASSIUM 3.8 mmol/L (3.5-5.1)
[2017-05-14] MEDS: FAMOTIDINE 20 MG INJ IV SCH (22:45)
[2017-05-14] MEDS: LEVETIRACETAM 1500 MG (PMX) 100 ML IVPB SCH (22:54)
[2017-05-15 03:43] LABS: CALCIUM 9.1 mg/dl (8.4-10.2); CREATININE 0.67 mg/dl (0.61-1.24); POTASSIUM 3.4 mmol/L (3.5-5.1)
[2017-05-15 05:50] LABS: ADD SCAN DIFF NO
[2017-05-15 06:13] LABS: INR 1.03; PROTIME 13.5 Sec (12.2-14.2); PT RATIO 1.1
[2017-05-15 06:14] LABS: BASOPHILS % 0.2 % (0.0-2.0); HEMATOCRIT 38.2 % (42.0-52.0); HEMOGLOBIN 12.9 g/dl (14.0-18.0); LYMPHOCYTES # 1.4 10^3/ul (0.8-2.9); LYMPHOCYTES % 16.7 % (15.0-51.0); MEAN CORPUSCULAR HEMOGLOBIN 35.8 pg (29.0-33.0); MEAN CORPUSCULAR HGB CONC 33.8 g/dl (32.0-37.0); MEAN CORPUSCULAR VOLUME 106.1 fl (82.0-101.0); MEAN PLATELET VOLUME 9.6 fl (7.4-10.4); MONOCYTE # 0.7 10^3/ul (0.3-0.9); MONOCYTES % 7.7 % (0.0-11.0); NEUTROPHIL # 6.3 10^3/ul (1.6-7.5); PARTIAL THROMBOPLASTIN TIME 26.6 Sec (25.0-35.0); PLATELET COUNT 128 10^3/UL (140-415); RED CELL DISTRIBUTION WIDTH 12.3 % (11.5-14.5); WHITE BLOOD COUNT 8.4 10^3/ul (4.8-10.8)
[2017-05-15 06:16] LABS: CALCIUM 9.1 mg/dl (8.4-10.2); CREATININE 0.63 mg/dl (0.61-1.24); POTASSIUM 3.3 mmol/L (3.5-5.1)
[2017-05-15 06:32] LABS: ALBUMIN 4.7 g/dl (3.3-4.9); BILIRUBIN,INDIRECT 1.5 mg/dl (0-1.1); BILIRUBIN,TOTAL 1.5 mg/dl (0.2-1.3); MAGNESIUM 1.8 mg/dl (1.7-2.5); PHOSPHORUS 3.4 mg/dl (2.5-4.9); TOTAL PROTEIN 6.6 g/dl (6.1-8.1)
[2017-05-15 08:03] LABS: THYROID STIMULATING HORMONE 0.38 MIU/L (0.465-4.680)
[2017-05-15] MEDS: PIPER-TAZO 3.375 GM IV (PMX) 100 ML IVPB SCH ×3 (08:30→23:27)
[2017-05-15] MEDS: FAMOTIDINE 20 MG INJ IV SCH ×2 (10:57→21:32)
[2017-05-15] MEDS ORDERED: LORAZEPAM 2 MG INJ IV ONE ×2 (11:00→19:30)
[2017-05-15] MEDS: LEVETIRACETAM 1500 MG (PMX) 100 ML IVPB SCH ×2 (11:36→21:56)
[2017-05-15] MEDS: MULTIVITAMINS 10 ML, THIAMINE 100 MG, FOLIC ACID 1 MG in SOD CHLORIDE 0.9% 1,000 ML IVPB SCH (12:01)
[2017-05-15] MEDS: NICOTINE (21 MG/24 HR) PATCH TRANSDERM SCH (12:32)
--- NOTE | 2017-05-15 13:52 | PN ---
Date/Time of Note Date/Time of Note DATE: 05/15/17 TIME: 13:45 Assessment/Plan VTE Prophylaxis VTE Prophylaxis Intervention: SCD's Assessment/Plan Assessment/Plan 77-year-old male who is being admitted to the intensive care unit for the followin. Status epilepticus/breakthrough seizures 2 acute encephalopathy secondary to seizures ( post ictal state] 3. Hypertension: Good control 4. Sepsis secondary to UTI: improving 5. Probable mild hyperosmolar non-ketotic hypoglycemia contributing to #1: resolved 6. Hyperbilirubinemia with likely underlying alcoholic liver disease 7. Developing aspiration pneumonia 8. Heavy alcohol and tobacco use per history PLAN: 1. Continue ICU monitoring and care for now until patient's mentation improves 2. Appreciate neurology input and recommendations. Continue Keppra at recommended doses 3. Perform bedside swallow eval, if patient passes we can start meds only ( Librium) to prevent delirium tremens 4. Discontinue insulin drip, continue sliding scale insulin for now 5. Continue empiric antibiotics for UTI and bilateral aspiration pneumonia 6. Continue supportive care with prophylaxis with SCDs and intravenous H2 blockers 7. Will need alcohol and cessation counseling when mentation is improved CC time >35mins Subjective 24 Hr Interval Summary Free Text/Dictation Patient is waking up now, has had episodes of agitation this morning that warranted Ativan therapy. I time of my review he is mildly restless in the bed but he is not following commands. He will open his eyes though spontaneously. Exam/Review of Systems Vital Signs Vitals Vital Signs Date Time Temp Pulse Resp B/P Pulse Ox O2 Delivery O2 Flow Rate FiO2 05/15/17 11:30 98.8 65 23 114/72 97 Room Air 05/15/17 05:00 2.0 Exam Constitutional: other (Arousable) Head: atraumatic Eyes: PERRL, icteric (Mildly) ENMT: No mucosa pink and moist (Slightly dry) Neck: supple Respiratory: diminished breath sounds, respirations (Clear), No crackles/rales, No labored breathing Cardiovascular: regular rate and rhythm, No murmurs/extra sounds Gastrointestinal: bowel sounds, non-tender, soft Genitourinary - Male: nl penis, nl scrotum Musculoskeletal: nl extremities to inspection Neurological: confused, other (Patient is seen to move all 4 extremities), No nl mental status Results Result Diagram: 05/15/17 0515 05/15/17 0515 Results 24 hrs Laboratory Tests Test 05/14/17 14:31 05/14/17 14:40 05/14/17 15:59 05/14/17 19:53 White Blood Count 12.2 H Red Blood Count 4.11 L Hemoglobin 15.0 Hematocrit 46.4 Mean Corpuscular Volume 112.9 H Mean Corpuscular Hemoglobin 36.5 H Mean Corpuscular Hemoglobin Concent 32.3 Red Cell Distribution Width 12.2 Platelet Count 201 Mean Platelet Volume 9.2 Neutrophils % 59.1 Lymphocytes % 34.6 Monocytes % 5.3 Eosinophils % 0.1 Basophils % 0.5 Nucleated Red Blood Cells % 0.0 Neutrophils # 7.2 Lymphocytes # 4.2 H Monocytes # 0.7 Eosinophils # 0.0 Basophils # 0.1 Nucleated Red Blood Cells # 0.0 Prothrombin Time 13.9 Prothrombin Time Ratio 1.1 INR International Normalized Ratio 1.07 Activated Partial Thromboplast Time 25.2 Sodium Level 149 H Potassium Level 3.8 Chloride Level 103 Carbon Dioxide Level 10 L Anion Gap 40 H Blood Urea Nitrogen 15 Creatinine 0.88 Glucose Level 299 H Calcium Level 11.0 H Total Bilirubin 1.4 H Direct Bilirubin 0.00 Indirect Bilirubin 1.4 H Aspartate Amino Transf (AST/SGOT) 76 H Alanine Aminotransferase (ALT/SGPT) 43 Alkaline Phosphatase 69 Total Protein 9.1 H Albumin 5.6 H Globulin 3.50 H Albumin/Globulin Ratio 1.60 Ethyl Alcohol Level < 10.0 Urine Color PHUC Urine Clarity SLIGHTLY CLOUDY A Urine pH 5.0 Urine Specific [place] 1.026 Urine Ketones 2+ H Urine Nitrite NEGATIVE Urine Bilirubin NEGATIVE Urine Urobilinogen 1+ H Urine Leukocyte Esterase NEGATIVE Urine Microscopic RBC 13 H Urine Microscopic WBC 2 Urine Bacteria FEW A Urine Mucus MODERATE Urine Hemoglobin NEGATIVE Urine Glucose NEGATIVE Urine Total Protein 3+ H Urine Opiates Screen NEGATIVE Urine Barbiturates NEGATIVE Urine Amphetamines Screen NEGATIVE Urine Benzodiazepines Screen NEGATIVE Urine Cocaine Screen NEGATIVE Urine Cannabinoids NEGATIVE Blood Gas Specimen Source Blood arterial Arterial Blood Date Drawn 05/14/2017 4:00:11 PM Arterial Blood pH (Temp corrected) 7.372 Arterial Blood pCO2 (Temp correct) 40.3 Arterial Blood pO2 (Temp corrected) 76.4 L Arterial Blood HCO3 22.9 Arterial Blood Base Excess -2.2 Arterial Blood Oxygen Saturation 93.6 L Beto Test ACCEPTAB Arterial Blood Gas Puncture Site Right Radial Arterial Blood Carboxyhemoglobin 0.9 Arterial Blood Methemoglobin 0.4 Blood Gas A-a O2 Differential 111.8 H Oxyhemoglobin Percent 92.4 L Total Hemoglobin 15.5 Blood Gas Temperature 37.0 Blood Gas Actual Respiration Rate 22 Blood Gas Modality NASAL CANNULA FiO2 33.0 Blood Gas Notified Whom KB Blood Gas Notified Time 05/14/2017 4:11:08 PM Bedside Glucose 181 Test 05/14/17 21:27 05/14/17 22:50 05/15/17 01:55 05/15/17 03:10 Sodium Level 143 139 Potassium Level 3.8 3.4 L Chloride Level 104 102 Carbon Dioxide Level 26 # 27 Anion Gap 17 #H 13 Blood Urea Nitrogen 18 14 Creatinine 0.68 0.67 Glucose Level 150 # 121 Calcium Level 9.5 9.1 Magnesium Level 2.0 Ammonia < 9 L Bedside Glucose 135 137 Test 05/15/17 05:15 White Blood Count 8.4 # Red Blood Count 3.60 L Hemoglobin 12.9 L Hematocrit 38.2 L Mean Corpuscular Volume 106.1 H Mean Corpuscular Hemoglobin 35.8 H Mean Corpuscular Hemoglobin Concent 33.8 Red Cell Distribution Width 12.3 Platelet Count 128 #L Mean Platelet Volume 9.6 Neutrophils % 75.0 Lymphocytes % 16.7 Monocytes % 7.7 Eosinophils % 0.0 Basophils % 0.2 Nucleated Red Blood Cells % 0.0 Neutrophils # 6.3 Lymphocytes # 1.4 Monocytes # 0.7 Eosinophils # 0.0 Basophils # 0.0 Nucleated Red Blood Cells # 0.0 Prothrombin Time 13.5 Prothrombin Time Ratio 1.1 INR International Normalized Ratio 1.03 Activated Partial Thromboplast Time 26.6 Sodium Level 139 Potassium Level 3.3 L Chloride Level 103 Carbon Dioxide Level 26 Anion Gap 13 Blood Urea Nitrogen 13 Creatinine 0.63 Glucose Level 112 Hemoglobin A1c 4.9 Calcium Level 9.1 Phosphorus Level 3.4 Magnesium Level 1.8 Total Bilirubin 1.5 H Direct Bilirubin 0.00 Indirect Bilirubin 1.5 H Aspartate Amino Transf (AST/SGOT) 48 H Alanine Aminotransferase (ALT/SGPT) 41 Alkaline Phosphatase 47 Total Protein 6.6 # Albumin 4.7 Triglycerides Level 71 Cholesterol Level 163 LDL Cholesterol, Calculated 71 HDL Cholesterol 78 H Cholesterol/HDL Ratio 2.0 Thyroid Stimulating Hormone (TSH) 0.380 L Medications Medications Current Medications Lorazepam (Ativan) 2 mg Q2H PRN IV seizures; Start 05/14/17 at 18:30 Famotidine (Pepcid Iv) 20 mg BID IV Last administered on 05/15/17 10:57; Admin Dose 20 MG; Start 05/14/17 at 21:00 Ondansetron HCl 4 mg 4 mg Q6H PRN IV NAUSEA AND/OR VOMITING; Start 05/14/17 at 18:30 Sodium Chloride (1/2 NS) 1,000 ml @ 100 mls/hr Q10H IV Last administered on 19:30; Admin Dose 100 MLS/HR; Start 05/14/17 at 18:30 Dextrose (D50w Syringe) 50 ml Q15M PRN IV For BS 50 or less; Start 05/14/17 at 18:30 Dextrose (D50w Syringe) 25 ml Q15M PRN IV BS between 50-70; Start 05/14/17 at 18:30 Diagnostic Test (Pha) 1 ea 1 ea Q1H XX Last administered on 05/14/17 18:30; Admin Dose 1 EA; Start 05/14/17 at 18:30 Piperacillin Sod/ Tazobactam Sod 100 ml @ 200 mls/hr Q8 IVPB Last administered on 05/15/17 08:30; Admin Dose 200 MLS/HR; Start 05/15/17 at 06:00 Multivitamins 10 ml/Thiamine HCl 100 mg/Folic Acid 1 mg/Sodium Chloride 1,011.2 ml @ 25 mls/hr DAILY@09 IVPB Last administered on 05/15/17 12:01; Admin Dose 25 MLS/HR; Start 05/15/17 at 09:00 Levetiracetam (Keppra 1,500mg/ 100ml (Pmx)) 100 ml @ 400 mls/hr BID IVPB Last administered on 05/15/17 11:36; Admin Dose 400 MLS/HR; Start 05/14/17 at 21:30 Nicotine (Nicoderm 21 Mg/ 24hr) 1 patch DAILY TRANSDERM Last administered on 12:32; Admin Dose 1 PATCH; Start 05/15/17 at 12:00 LYNDON VILLASEÑOR May 15, 2017 13:52
[2017-05-15] MEDS ORDERED: DEXTROSE 50% 50 ML SYRINGE IV PRN ×2 (14:00)
[2017-05-15] MEDS ORDERED: GLUCOSE GEL 15 GRAM TUBE PO PRN ×2 (14:00)
[2017-05-15] MEDS ORDERED: GLUCOSE GEL 15 GRAM TUBE BUCCAL PRN (14:00)
[2017-05-15] MEDS ORDERED: POTASSIUM CHLORIDE 20 MEQ in SOD CHLORIDE 0.9% 100 ML IVPB ONE (14:00)
[2017-05-15] MEDS: CHLORDIAZEPOXIDE 25 MG CAP PO SCH ×2 (14:00→21:32)
[2017-05-15] MEDS ORDERED: GLUCAGON 1 MG INJ IM PRN (14:00)
[2017-05-15] MEDS: DEXTROSE 5%-0.45% NACL 1,000 ML IV SCH (14:45)
[2017-05-15] MEDS: INSULIN ASPART [NOVOLOG] 3 ML PEN SC SCH ×2 (18:00→21:00)
[2017-05-16] MEDS: DEXTROSE 5%-0.45% NACL 1,000 ML IV SCH ×2 (00:06→16:40)
[2017-05-16] MEDS ORDERED: ONDANSETRON 4 MG INJ IV STA (01:45)
[2017-05-16] MEDS ORDERED: HYDROmorphONE 1 MG/ML SYG IV STA (01:45)
[2017-05-16] MEDS ORDERED: ACCU-CHEK XX SCH (02:00)
[2017-05-16] MEDS: PIPER-TAZO 3.375 GM IV (PMX) 100 ML IVPB SCH ×3 (05:05→22:56)
[2017-05-16 06:11] LABS: ADD SCAN DIFF NO
[2017-05-16 06:17] LABS: BASOPHILS % 0.4 % (0.0-2.0); EOSINOPHILS # 0.1 10^3/ul (0.0-0.5); EOSINOPHILS % 0.7 % (0.0-7.0); HEMATOCRIT 36.4 % (42.0-52.0); HEMOGLOBIN 12.7 g/dl (14.0-18.0); LYMPHOCYTES # 1.8 10^3/ul (0.8-2.9); LYMPHOCYTES % 26.7 % (15.0-51.0); MEAN CORPUSCULAR HEMOGLOBIN 37.2 pg (29.0-33.0); MEAN CORPUSCULAR HGB CONC 34.9 g/dl (32.0-37.0); MEAN CORPUSCULAR VOLUME 106.7 fl (82.0-101.0); MEAN PLATELET VOLUME 9.7 fl (7.4-10.4); MONOCYTE # 0.4 10^3/ul (0.3-0.9); MONOCYTES % 5.8 % (0.0-11.0); NEUTROPHIL # 4.5 10^3/ul (1.6-7.5); NEUTROPHILS % 66.1 % (39.0-77.0); PLATELET COUNT 118 10^3/UL (140-415); RED BLOOD COUNT 3.41 10^6/ul (4.70-6.10); RED CELL DISTRIBUTION WIDTH 11.9 % (11.5-14.5); WHITE BLOOD COUNT 6.9 10^3/ul (4.8-10.8)
[2017-05-16 06:44] LABS: BILIRUBIN,INDIRECT 1.2 mg/dl (0-1.1); BILIRUBIN,TOTAL 1.2 mg/dl (0.2-1.3)
[2017-05-16 07:01] LABS: T3 UPTAKE 39.7 % (23.5-40.5)
[2017-05-16 07:15] LABS: THYROID STIMULATING HORMONE 1.24 MIU/L (0.465-4.680)
[2017-05-16] MEDS: INSULIN ASPART [NOVOLOG] 3 ML PEN SC SCH ×3 (08:00→17:00)
[2017-05-16 08:36] VITALS: TEMP 98.7
[2017-05-16] MEDS: CHLORDIAZEPOXIDE 25 MG CAP PO SCH ×4 (09:00→21:00)
[2017-05-16 09:50] VITALS: BP 145/81; PULSE 69; RESP 22
[2017-05-16 11:06] VITALS: Ht 167.6 cm; Wt 58.0 kg
[2017-05-16] MEDS: NICOTINE (21 MG/24 HR) PATCH TRANSDERM SCH (12:24)
[2017-05-16] MEDS: FAMOTIDINE 20 MG INJ IV SCH ×2 (12:24→22:02)
[2017-05-16] MEDS: MULTIVITAMINS 10 ML, THIAMINE 100 MG, FOLIC ACID 1 MG in SOD CHLORIDE 0.9% 1,000 ML IVPB SCH (13:11)
[2017-05-16] MEDS: LEVETIRACETAM 1500 MG (PMX) 100 ML IVPB SCH ×2 (13:12→22:12)
[2017-05-16] MEDS ORDERED: LORAZEPAM 2 MG INJ IV PRN ×2 (14:00→23:00)
--- NOTE | 2017-05-16 18:25 | PN ---
Date/Time of Note Date/Time of Note DATE: 05/16/17 TIME: 18:21 Assessment/Plan VTE Prophylaxis VTE Prophylaxis Intervention: SCD's Lines/Catheters IV Catheter Type (from Nrs): Saline Lock Urinary Cath still in place: Yes Reason Cath still needed: other (indicate) (altered mentation) Assessment/Plan Assessment/Plan 77-year-old male who is being admitted to the intensive care unit for the followin. Status epilepticus/breakthrough seizures 2 acute encephalopathy secondary to seizures ( post ictal state] 3. Hypertension: Good control 4. Sepsis secondary to UTI: improving 5. Probable mild hyperosmolar non-ketotic hypoglycemia contributing to #1: resolved 6. Hyperbilirubinemia with likely underlying alcoholic liver disease 7. Developing aspiration pneumonia 8. Heavy alcohol and tobacco use per history PLAN: Continue close monitoring and seizure precautions / MRI brain Appreciate neurology input and recommendations. Continue Keppra at recommended doses Perform bedside swallow eval, if patient passes we can start meds only (Librium ) to prevent delirium tremens / Strict aspiration precautions Continue empiric antibiotics for UTI and bilateral aspiration pneumonia Continue supportive care with prophylaxis with SCDs and intravenous H2 blockers Will need alcohol and cessation counseling when mentation is improved Prognosis is still guarded Subjective 24 Hr Interval Summary Free Text/Dictation Intermittent confusion and sleeping No further seizures Subjective hx not possible: pt non-verbal Exam/Review of Systems Vital Signs Vitals Vital Signs Date Time Temp Pulse Resp B/P Pulse Ox O2 Delivery O2 Flow Rate FiO2 05/16/17 11:45 Nasal Cannula 2.0 05/16/17 09:50 97.7 69 22 145/81 95 Intake and Output 05/15/17 05/15/17 05/16/17 14:59 22:59 06:59 Intake Total 200 ml Output Total 1000 ml Balance 200 ml -1000 ml Exam Constitutional: other (barely arousable) Head: atraumatic, normocephalic Eyes: PERRL ENMT: No mucosa pink and moist (dry) Neck: supple Respiratory: clear to auscultation, diminished breath sounds Cardiovascular: regular rate and rhythm, No murmurs/extra sounds Gastrointestinal: non-tender, soft Extremities: No edema Neurological: No focal weakness, No nl mental status Results Result Diagram: 05/16/17 0525 05/15/17 0515 Results 24 hrs Laboratory Tests Test 05/15/17 18:30 05/16/17 02:20 05/16/17 05:25 05/16/17 12:22 Bedside Glucose 122 127 117 White Blood Count 6.9 Red Blood Count 3.41 L Hemoglobin 12.7 L Hematocrit 36.4 L Mean Corpuscular Volume 106.7 H Mean Corpuscular Hemoglobin 37.2 H Mean Corpuscular Hemoglobin Concent 34.9 Red Cell Distribution Width 11.9 Platelet Count 118 L Mean Platelet Volume 9.7 Neutrophils % 66.1 Lymphocytes % 26.7 Monocytes % 5.8 Eosinophils % 0.7 Basophils % 0.4 Nucleated Red Blood Cells % 0.0 Neutrophils # 4.5 Lymphocytes # 1.8 Monocytes # 0.4 Eosinophils # 0.1 Basophils # 0.0 Nucleated Red Blood Cells # 0.0 Total Bilirubin 1.2 Direct Bilirubin 0.00 Indirect Bilirubin 1.2 H Aspartate Amino Transf (AST/SGOT) 83 #H Alanine Aminotransferase (ALT/SGPT) 43 Alkaline Phosphatase 42 Total Protein 6.0 L Albumin 4.0 Thyroid Stimulating Hormone (TSH) 1.240 Free Thyroxine Index 3.06 Thyroxine (T4) 7.7 Triiodothyronine (T3) Uptake 39.7 Test 05/16/17 17:25 Bedside Glucose 142 Medications Medications Current Medications Lorazepam (Ativan) 2 mg Q2H PRN IV seizures Last administered on 05/16/17 04: 06; Admin Dose 2 MG; Start 05/14/17 at 18:30 Famotidine (Pepcid Iv) 20 mg BID IV Last administered on 05/16/17 12:24; Admin Dose 20 MG; Start 05/14/17 at 21:00 Ondansetron HCl 4 mg 4 mg Q6H PRN IV NAUSEA AND/OR VOMITING; Start 05/14/17 at 18:30 Piperacillin Sod/ Tazobactam Sod 100 ml @ 200 mls/hr Q8 IVPB Last administered on 05/16/17 14:51; Admin Dose 200 MLS/HR; Start 05/15/17 at 06:00 Multivitamins 10 ml/Thiamine HCl 100 mg/Folic Acid 1 mg/Sodium Chloride 1,011.2 ml @ 125 mls/ hr DAILY@09 IVPB Last administered on 05/16/17 13:11; Admin Dose 125 MLS/HR; Start 05/15/17 at 09:00 Levetiracetam (Keppra 1,500mg/ 100ml (Pmx)) 100 ml @ 400 mls/hr BID IVPB Last administered on 05/16/17 13:12; Admin Dose 400 MLS/HR; Start 05/14/17 at 21:30 Nicotine 1 patch 1 patch DAILY TRANSDERM Last administered on 05/16/17 12:24; Admin Dose 1 PATCH; Start 05/15/17 at 12:00 Dextrose/Sodium Chloride (D5-1/2ns) 1,000 ml @ 75 mls/hr [id number] IV Last administered on 05/16/17 00:06; Admin Dose 75 MLS/HR; Start 05/15/17 at 14:00 Chlordiazepoxide (Librium) 25 mg TID PO Last administered on 05/15/17 21:32; Admin Dose 25 MG; Start 05/15/17 at 14:00 Diagnostic Test (Pha) (Accu-Chek) 1 ea 02 XX Last administered on 05/16/17 02: 21; Admin Dose 1 EA; Start 05/16/17 at 02:00 Miscellaneous Information 1 ea NOTE XX ; Start 05/15/17 at 14:00 Glucose (Glutose) 15 gm Q15M PRN PO DECREASED GLUCOSE; Start 05/15/17 at 14:00 Glucose (Glutose) 22.5 gm Q15M PRN PO DECREASED GLUCOSE; Start 05/15/17 at 14: 00 Dextrose (D50w Syringe) 25 ml Q15M PRN IV DECREASED GLUCOSE; Start 05/15/17 at 14:00 Dextrose (D50w Syringe) 50 ml Q15M PRN IV DECREASED GLUCOSE; Start 05/15/17 at 14:00 Glucagon (Glucagen) 1 mg Q15M PRN IM DECREASED GLUCOSE; Start 05/15/17 at 14:00 Glucose (Glutose) 15 gm Q15M PRN BUCCAL DECREASED GLUCOSE; Start 05/15/17 at 14 :00 Insulin Aspart (Novolog Insulin Pen) NOVOLOG *MILD* ALGORI... Q4 SC ; Start at 13:00 Lorazepam (Ativan) 1 mg ONCE PRN IV MRI; Start 05/16/17 at 14:00; Stop 05/18/17 at 13:59 Diagnostic Test (Pha) (Accu-Chek) 1 ea Q4 XX ; Start 05/16/17 at 21:00 LYNDON VILLASEÑOR May 16, 2017 18:25
[2017-05-16 20:42] VITALS: BP 159/86; RESP 18
[2017-05-16] MEDS: ACCU-CHEK XX SCH (21:00)
[2017-05-16 21:55] LABS: ALBUMIN/GLOBULIN RATIO 1.9; BILIRUBIN,INDIRECT 1.3 mg/dl (0-1.1); BILIRUBIN,TOTAL 1.3 mg/dl (0.2-1.3); CALCIUM 9.2 mg/dl (8.4-10.2); CREATININE 0.5 mg/dl (0.61-1.24); MAGNESIUM 1.5 mg/dl (1.7-2.5); PHOSPHORUS 2.2 mg/dl (2.5-4.9); POTASSIUM 3.1 mmol/L (3.5-5.1); TOTAL PROTEIN 6.1 g/dl (6.1-8.1)
[2017-05-16 22:00] VITALS: BP 149/90; PULSE 84; RESP 20
--- NOTE | 2017-05-16 22:36 | CONS ---
Date/Time of Note Date/Time of Note DATE: 05/16/17 TIME: 22:33 Assessment Additional comments: SPECIAL PROCEDURE DATE OF PROCEDURE: 05/14/2017 INDICATION: A 77-year-old with seizures DESCRIPTION OF PROCEDURE: Routine EEG was recorded digitally. [id number] and swbtw-[id number]-met montages were recorded and reviewed. All impedances were measured and recorded. Cap electrodes were placed in accordance with International 10-20 system of electrode placement. FINDINGS: Symmetrically distributed background activity was seen. Intermittent artifacts observed. Background rhythm is of low amplitude, about 4 to 6 cycles per second, intermixing with smaller and faster beta range activity. No signs of ongoing electrographic seizures. No lateralized slowing. IMPRESSION: Abnormal study secondary to severe background slowing c/w encephalopathy, toxic-metabolic or postictal. No seizure activity or epileptiform activity are seen. KRISTEN MATHIS MD May 16, 2017 22:36
--- NOTE | 2017-05-16 22:57 | CONS ---
Date/Time of Note Date/Time of Note DATE: 05/16/17 TIME: 22:53 Consult Date/Type/Reason Admit Date/Time May 16, 2017 at 08:40 Initial Consult Date Type of Consultation: neurology Subjective No seizures, confused per nurse Objective Vital Signs Date Time Temp Pulse Resp B/P Pulse Ox O2 Delivery O2 Flow Rate FiO2 05/16/17 20:42 98.5 78 18 159/86 96 05/16/17 11:45 Nasal Cannula 2.0 Intake and Output 05/15/17 05/15/17 05/16/17 15:00 23:00 07:00 Intake Total 200 ml Output Total 1000 ml Balance 200 ml -1000 ml Results/Medications Result Diagram: 05/16/1752405/16/172049 Results 24 hrs Laboratory Tests Test 05/16/17 02:20 05/16/17 05:25 05/16/17 12:22 05/16/17 17:25 Bedside Glucose 127 117 142 White Blood Count 6.9 Red Blood Count 3.41 L Hemoglobin 12.7 L Hematocrit 36.4 L Mean Corpuscular Volume 106.7 H Mean Corpuscular Hemoglobin 37.2 H Mean Corpuscular Hemoglobin Concent 34.9 Red Cell Distribution Width 11.9 Platelet Count 118 L Mean Platelet Volume 9.7 Neutrophils % 66.1 Lymphocytes % 26.7 Monocytes % 5.8 Eosinophils % 0.7 Basophils % 0.4 Nucleated Red Blood Cells % 0.0 Neutrophils # 4.5 Lymphocytes # 1.8 Monocytes # 0.4 Eosinophils # 0.1 Basophils # 0.0 Nucleated Red Blood Cells # 0.0 Total Bilirubin 1.2 Direct Bilirubin 0.00 Indirect Bilirubin 1.2 H Aspartate Amino Transf (AST/SGOT) 83 #H Alanine Aminotransferase (ALT/SGPT) 43 Alkaline Phosphatase 42 Total Protein 6.0 L Albumin 4.0 Thyroid Stimulating Hormone (TSH) 1.240 Free Thyroxine Index 3.06 Thyroxine (T4) 7.7 Triiodothyronine (T3) Uptake 39.7 Test 05/16/17 20:50 05/16/17 22:00 Sodium Level 139 Potassium Level 3.1 L Chloride Level 103 Carbon Dioxide Level 26 Anion Gap 13 Blood Urea Nitrogen 7 Creatinine 0.50 L Glucose Level 143 Calcium Level 9.2 Phosphorus Level 2.2 #L Magnesium Level 1.5 L Total Bilirubin 1.3 Direct Bilirubin 0.00 Indirect Bilirubin 1.3 H Aspartate Amino Transf (AST/SGOT) 138 #H Alanine Aminotransferase (ALT/SGPT) 54 Alkaline Phosphatase 45 Ammonia < 9 L Total Protein 6.1 Albumin 4.0 Globulin 2.10 Albumin/Globulin Ratio 1.90 Bedside Glucose 139 Medications Current Medications Famotidine (Pepcid Iv) 20 mg BID IV Last administered on 05/16/17 22:02; Admin Dose 20 MG; Start 05/14/17 at 21:00 Ondansetron HCl 4 mg 4 mg Q6H PRN IV NAUSEA AND/OR VOMITING; Start 05/14/17 at 18:30 Piperacillin Sod/ Tazobactam Sod 100 ml @ 200 mls/hr Q8 IVPB Last administered on 05/16/17 14:51; Admin Dose 200 MLS/HR; Start 05/15/17 at 06:00 Multivitamins 10 ml/Thiamine HCl 100 mg/Folic Acid 1 mg/Sodium Chloride 1,011.2 ml @ 125 mls/ hr DAILY@09 IVPB Last administered on 05/16/17 13:11; Admin Dose 125 MLS/HR; Start 05/15/17 at 09:00 Levetiracetam (Keppra 1,500mg/ 100ml (Pmx)) 100 ml @ 400 mls/hr BID IVPB Last administered on 05/16/17 22:12; Admin Dose 400 MLS/HR; Start 05/14/17 at 21:30 Nicotine 1 patch 1 patch DAILY TRANSDERM Last administered on 05/16/17 12:24; Admin Dose 1 PATCH; Start 05/15/17 at 12:00 Dextrose/Sodium Chloride (D5-1/2ns) 1,000 ml @ 75 mls/hr [id number] IV Last administered on 05/16/17 00:06; Admin Dose 75 MLS/HR; Start 05/15/17 at 14:00 Chlordiazepoxide (Librium) 25 mg TID PO Last administered on 05/15/17 21:32; Admin Dose 25 MG; Start 05/15/17 at 14:00 Miscellaneous Information 1 ea NOTE XX ; Start 05/15/17 at 14:00 Glucose (Glutose) 15 gm Q15M PRN PO DECREASED GLUCOSE; Start 05/15/17 at 14:00 Glucose (Glutose) 22.5 gm Q15M PRN PO DECREASED GLUCOSE; Start 05/15/17 at 14: 00 Dextrose (D50w Syringe) 25 ml Q15M PRN IV DECREASED GLUCOSE; Start 05/15/17 at 14:00 Dextrose (D50w Syringe) 50 ml Q15M PRN IV DECREASED GLUCOSE; Start 05/15/17 at 14:00 Glucagon (Glucagen) 1 mg Q15M PRN IM DECREASED GLUCOSE; Start 05/15/17 at 14:00 Glucose (Glutose) 15 gm Q15M PRN BUCCAL DECREASED GLUCOSE; Start 05/15/17 at 14 :00 Diagnostic Test (Pha) (Accu-Chek) 1 ea Q4 XX ; Start 05/16/17 at 21:00 Lorazepam (Ativan) 1 mg Q4H PRN IV AGITATION; Start 05/16/17 at 21:52 Assessment/Plan Chief Complaint/Hosp Course PHYSICAL EXAMINATION: GENERAL: Not in acute distress, lying in bed. HEENT: Normocephalic, atraumatic head. NECK: No carotid bruits. No thyromegaly. LUNGS: Clear to auscultation bilaterally. CARDIAC: Normal cardiac rhythm and sounds. ABDOMEN: Soft. EXTREMITIES: No cyanosis, clubbing, or edema. Tenderness to palpation in the right buttock and lumbar spinous processes. NEUROLOGIC: He is awake , fluent speech, not oriented, looks bilaterally. Cranial nerve examination shows intact visual munoz bilaterally to threat. Pupils round, reactive to light from 3 to 2 mm bilaterally. Extraocular movements intact without nystagmus. Symmetrical face. Preserved facial strength and sensation. Corneals and gag OK. Motor strength examination is preserved in all extremities. Normal bulk, tone. Moves to pain. Deep tendon reflexes 1+ upper extremities, absent in lower extremities. Downgoing toes bilaterally. No tremor. IMPRESSION: Seizure d/o. ETOH abuse. Continue Keppra 1500 bid. EEG no ongoing seizures, c/w encephalopathy. Watch for ETOH withdrawal, cont benzos Problems: KRISTEN MATHIS MD May 16, 2017 22:57
[2017-05-16] MEDS: LORAZEPAM 2 MG INJ IV PRN (23:07)
[2017-05-17] VITALS (19 sets, daily range): BP systolic 96–181; BP diastolic 67–95; PULSE 67–150; RESP 18–32
[2017-05-17] MEDS: DEXTROSE 5%-0.45% NACL 1,000 ML IV SCH ×3 (00:14→19:20)
[2017-05-17] MEDS: ACCU-CHEK XX SCH ×6 (01:00→21:00)
[2017-05-17] MEDS: hydrALAzine 20 MG INJ IV PRN (04:47)
[2017-05-17] MEDS: PIPER-TAZO 3.375 GM IV (PMX) 100 ML IVPB SCH ×3 (05:45→23:06)
[2017-05-17] MEDS: LORAZEPAM 2 MG INJ IV PRN ×2 (06:00→23:21)
[2017-05-17] MEDS ORDERED: LORAZEPAM 2 MG INJ IV PRN (06:00)
[2017-05-17 07:33] LABS: BASOPHILS % 0.2 % (0.0-2.0); EOSINOPHILS % 0.4 % (0.0-7.0); HEMOGLOBIN 14.5 g/dl (14.0-18.0); LYMPHOCYTES # 1.4 10^3/ul (0.8-2.9); LYMPHOCYTES % 15.1 % (15.0-51.0); MEAN CORPUSCULAR HGB CONC 36.3 g/dl (32.0-37.0); MEAN PLATELET VOLUME 9.7 fl (7.4-10.4); MONOCYTE # 0.5 10^3/ul (0.3-0.9); MONOCYTES % 5.8 % (0.0-11.0); NEUTROPHILS % 78.1 % (39.0-77.0); PLATELET COUNT 135 10^3/UL (140-415); RED BLOOD COUNT 3.92 10^6/ul (4.70-6.10); RED CELL DISTRIBUTION WIDTH 11.6 % (11.5-14.5)
[2017-05-17 07:37] LABS: ADD SCAN DIFF NO
[2017-05-17] MEDS: FAMOTIDINE 20 MG INJ IV SCH ×2 (09:45→22:25)
[2017-05-17] MEDS: NICOTINE (21 MG/24 HR) PATCH TRANSDERM SCH ×2 (09:45→23:37)
[2017-05-17] MEDS ORDERED: MAGNESIUM SULFATE 2 GM/50 ML 50 ML IVPB ONE (10:00)
[2017-05-17] MEDS ORDERED: POTASSIUM PHOSPHATE 15 MM in SOD CHLORIDE 0.9% 250 ML IVPB ONE (11:00)
--- NOTE | 2017-05-17 12:29 | RADRPT ---
PROCEDURE: MR Brain without and with contrast. CLINICAL INDICATION: Seizures TECHNIQUE: A high resolution MRI of the brain was performed utilizing the following sequences: Sag ittal and axial T1 weighted, axial T2 weighted, axial FLAIR, coronal GRE, and axial diffusion weight ed with ADC mapping. Images were reviewed high-resolution PACS workstation. Coronal T1 3D SPGR sequ ences were also acquired. Additional axial and coronal post contrast images were obtained. 10 cc of ProHance was administered intravenously without reported complication. COMPARISON: Correlation head CT 05/14/2017 FINDINGS: No acute parenchymal hemorrhage, significant mass effect, or midline shift. No evidence of recent in farct. Foci of GRE susceptibility at the right parietal lobe. Subcortical, deep, and periventricula r white matter T2-weighted/FLAIR hyperintensities are consistent with chronic microvascular ischemic disease. The mesial temporal lobes grossly demonstrate normal signal intensity and volume bilaterally. No cor onal T2 or FLAIR sequence was acquired for further evaluation. Focal left temporal cortical encepha lomalacia with GRE susceptibility. The ventricles are stable size with mild to moderate generalized volume loss noted. Normal flow void s are visible in the proximal intracranial arteries suggesting their patency. The visualized paranasal sinuses and mastoids are grossly clear. No abnormal parenchymal, dural or leptomeningeal enhancement. IMPRESSION: No evidence of acute intracranial abnormality or recent infarct. 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 Foci of GRE susceptibility at the right parietal lobe may represent small cavernous malformations or a sequela of prior microhemorrhage. No enhancing intracranial mass. Moderate chronic microvascular ischemic changes. RPTAT: AA .Cade Willams MD, MD Date Time Electronically viewed and signed by .Cade Willams MD, MD on 05/17/2017 12:29 .T/
[2017-05-17] MEDS: LEVETIRACETAM 1500 MG (PMX) 100 ML IVPB SCH ×2 (12:49→22:25)
[2017-05-17] MEDS: CHLORDIAZEPOXIDE 25 MG CAP PO SCH ×3 (12:53→22:26)
[2017-05-17] MEDS: MULTIVITAMINS 10 ML, THIAMINE 100 MG, FOLIC ACID 1 MG in SOD CHLORIDE 0.9% 1,000 ML IVPB SCH (15:00)
[2017-05-17 15:36] LABS: AADO2 Arterial 47.5 mmHg (7.0-24.0); Allen Test ACCEPTAB; Arterial Base Excess 0.4 mmol/L (-3.0-3); Arterial COHb 0.8 % (0.0-3.0); Arterial Fraction of Oxyhgb 93.8 % (93.0-99.0); Arterial HCO3 21.7 mmol/L (22.0-26.0); Arterial MetHb 0.2 % (0.0-1.5); Arterial Total Hemglobin 15.8 g/dl (12.0-18.0); MODE ROOM AIR
[2017-05-17] MEDS ORDERED: IPRATROPIUM (NEB) 0.5 MG/2.5 ML AMP ONE (15:47)
[2017-05-17] MEDS: IPRATROPIUM (NEB) 0.5 MG/2.5 ML AMP HHN SCH ×2 (15:58→20:17)
[2017-05-17] MEDS ORDERED: DILTIAZEM 25 MG INJ IV ONE (16:00)
[2017-05-17] MEDS ORDERED: SOD CHLORIDE 0.9% 500 ML IV ONE (16:00)
[2017-05-17] MEDS ORDERED: DILTIAZEM (CD) 120 MG CAP PO STA (16:07)
[2017-05-17] MEDS ORDERED: DILTIAZEM-D5W 125MG/125ML DRIP 125 ML ONE (16:33)
[2017-05-17] MEDS: DILTIAZEM-D5W 125MG/125ML DRIP 125 ML IV SCH ×3 (16:39→17:11)
[2017-05-17 17:23] LABS: MAGNESIUM 2.2 mg/dl (1.7-2.5); PHOSPHORUS 2.8 mg/dl (2.5-4.9)
[2017-05-17 17:35] LABS: TROPONIN-I 0.077 ng/ml (0.00-0.12)
[2017-05-17 17:43] LABS: CK-MB 2.71 ng/ml (0.0-2.4)
--- NOTE | 2017-05-17 21:15 | PN ---
Date/Time of Note Date/Time of Note DATE: 05/17/17 TIME: 21:03 Assessment/Plan VTE Prophylaxis VTE Prophylaxis Intervention: SCD's Lines/Catheters IV Catheter Type (from Nrs): Peripheral IV Urinary Cath still in place: Yes Reason Cath still needed: other (indicate) Assessment/Plan Assessment/Plan 7-year-old male who presented with seizures now managed as follows: 1. Acute resp distress 2/2 #2 2. Newly diagnosed Afib RVR 3. Persistent encephalopathy likely 2/2 withdrawal from alcohol / DTs 4. S /p Status epilepticus/breakthrough seizures 5. Hypertension: Good control 6. Sepsis secondary to UTI: improving 7. Probable mild hyperosmolar non-ketotic hypoglycemia contributing to #1: resolved 8. Hyperbilirubinemia with likely underlying alcoholic liver disease 9. Developing aspiration pneumonia 10. Heavy alcohol and tobacco use per history PLAN: Transfer to tele / Cardizem drip / r/o ACS / Cardiology consult / Continue close monitoring and seizure precautions / MRI brain Appreciate neurology input and recommendations. Continue antiseizure meds Strict aspiration precautions Continue empiric antibiotics for UTI and bilateral aspiration pneumonia Continue supportive care with prophylaxis with SCDs and intravenous H2 blockers Will need alcohol and cessation counseling when mentation is improved Prognosis is still guarded CCtime >35mins Subjective 24 Hr Interval Summary Free Text/Dictation Patient still fairly unresponsive with tachycardia and mild resp distress ABG and EKG done at bedside which I reviewed Ipratropium / IVF Bolus / IV cardizem given at bedside for new onset Afib RVR Transfer to tele. Exam/Review of Systems Vital Signs Vitals Vital Signs Date Time Temp Pulse Resp B/P Pulse Ox O2 Delivery O2 Flow Rate FiO2 05/17/17 20:46 91 05/17/17 20:28 2.0 05/17/17 20:28 24 98 Nasal Cannula 05/17/17 17:45 98.5 120/75 Intake and Output 05/16/17 05/16/17 05/17/17 15:00 23:00 07:00 Intake Total 1200 ml 550 ml 1136.2 ml Output Total 600 ml 1100 ml Balance 1200 ml -50 ml 36.2 ml Exam Constitutional: distress (mild resp distress and tachypnea), other (arousable) , No alert Head: normocephalic Eyes: icteric (mildly) ENMT: other (mouth breathing) Neck: supple Respiratory: diminished breath sounds, wheezing Cardiovascular: irregular rhythm, No murmurs/extra sounds, No regular rate and rhythm Gastrointestinal: bowel sounds, non-tender, soft Extremities: No edema Neurological: lethargic, other (one word answers) Results Result Diagram: 05/17/1758 05/16/172049 Results 24 hrs Laboratory Tests Test 05/16/17 22:00 05/17/17 01:37 05/17/17 05:17 05/17/17 06:58 Bedside Glucose 139 128 126 White Blood Count 9.0 # Red Blood Count 3.92 L Hemoglobin 14.5 Hematocrit 40.0 L Mean Corpuscular Volume 102.0 H Mean Corpuscular Hemoglobin 37.0 H Mean Corpuscular Hemoglobin Concent 36.3 Red Cell Distribution Width 11.6 Platelet Count 135 L Mean Platelet Volume 9.7 Neutrophils % 78.1 H Lymphocytes % 15.1 Monocytes % 5.8 Eosinophils % 0.4 Basophils % 0.2 Nucleated Red Blood Cells % 0.0 Neutrophils # 7.0 Lymphocytes # 1.4 Monocytes # 0.5 Eosinophils # 0.0 Basophils # 0.0 Nucleated Red Blood Cells # 0.0 Test 05/17/17 09:41 05/17/17 13:46 05/17/17 14:38 05/17/17 16:40 Bedside Glucose 139 126 Blood Gas Specimen Source Blood arterial Arterial Blood Date Drawn 05/17/2017 3:25:07 PM Arterial Blood pH (Temp corrected) 7.521 H Arterial Blood pCO2 (Temp correct) 27.1 L Arterial Blood pO2 (Temp corrected) 69.8 L Arterial Blood HCO3 21.7 L Arterial Blood Base Excess 0.4 Arterial Blood Oxygen Saturation 94.7 L Beto Test ACCEPTAB Arterial Blood Gas Puncture Site LB Arterial Blood Carboxyhemoglobin 0.8 Arterial Blood Methemoglobin 0.2 Blood Gas A-a O2 Differential 47.5 H Oxyhemoglobin Percent 93.8 Total Hemoglobin 15.8 Blood Gas Temperature 37.0 Blood Gas Respiration Rate 20.0 Blood Gas Modality ROOM AIR FiO2 21.0 Blood Gas Notified Whom Unique POOLE Blood Gas Notified Time 05/17/2017 3:35:53 PM Phosphorus Level 2.8 Magnesium Level 2.2 Creatine Kinase Creatine Kinase Index 0.0 Creatinine Kinase MB (Mass) 2.71 H Troponin I 0.077 Test 05/17/17 16:59 Bedside Glucose 123 Medications Medications Current Medications Famotidine (Pepcid Iv) 20 mg BID IV Last administered on 05/17/17 09:45; Admin Dose 20 MG; Start 05/14/17 at 21:00 Ondansetron HCl 4 mg 4 mg Q6H PRN IV NAUSEA AND/OR VOMITING; Start 05/14/17 at 18:30 Piperacillin Sod/ Tazobactam Sod 100 ml @ 200 mls/hr Q8 IVPB Last administered on 05/17/17 17:57; Admin Dose 200 MLS/HR; Start 05/15/17 at 06:00 Multivitamins 10 ml/Thiamine HCl 100 mg/Folic Acid 1 mg/Sodium Chloride 1,011.2 ml @ 125 mls/ hr DAILY@09 IVPB Last administered on 05/17/17 15:00; Admin Dose 125 MLS/HR; Start 05/15/17 at 09:00 Levetiracetam (Keppra 1,500mg/ 100ml (Pmx)) 100 ml @ 400 mls/hr BID IVPB Last administered on 05/17/17 12:49; Admin Dose 400 MLS/HR; Start 05/14/17 at 21:30 Nicotine 1 patch 1 patch DAILY TRANSDERM Last administered on 05/17/17 09:45; Admin Dose 1 PATCH; Start 05/15/17 at 12:00 Dextrose/Sodium Chloride (D5-1/2ns) 1,000 ml @ 75 mls/hr [id number] IV Last administered on 05/17/17 00:14; Admin Dose 75 MLS/HR; Start 05/15/17 at 14:00 Miscellaneous Information 1 ea NOTE XX ; Start 05/15/17 at 14:00 Glucose (Glutose) 15 gm Q15M PRN PO DECREASED GLUCOSE; Start 05/15/17 at 14:00 Glucose (Glutose) 22.5 gm Q15M PRN PO DECREASED GLUCOSE; Start 05/15/17 at 14: 00 Dextrose (D50w Syringe) 25 ml Q15M PRN IV DECREASED GLUCOSE; Start 05/15/17 at 14:00 Dextrose (D50w Syringe) 50 ml Q15M PRN IV DECREASED GLUCOSE; Start 05/15/17 at 14:00 Glucagon (Glucagen) 1 mg Q15M PRN IM DECREASED GLUCOSE; Start 05/15/17 at 14:00 Glucose (Glutose) 15 gm Q15M PRN BUCCAL DECREASED GLUCOSE; Start 05/15/17 at 14 :00 Diagnostic Test (Pha) (Accu-Chek) 1 ea Q4 XX Last administered on 05/17/17 16: 59; Admin Dose 1 EA; Start 05/16/17 at 21:00 Lorazepam (Ativan) 1 mg Q4H PRN IV AGITATION Last administered on 05/17/17 06: 00; Admin Dose 1 MG; Start 05/16/17 at 21:52 Lorazepam (Ativan) 2 mg Q2H PRN IV seizures; Start 05/16/17 at 23:00 Hydralazine HCl (Apresoline) 10 mg Q4H PRN IV ELEVATED BLOOD PRESSURE Last administered on 05/17/17 04:47; Admin Dose 10 MG; Start 05/17/17 at 05:00 Chlordiazepoxide 50 mg 50 mg TID PO ; Start 05/17/17 at 13:00 Diltiazem HCl (Cardizem-D5W 125 Mg/125 ml Drip) 125 ml @ 5 mls/hr TITRATE IV Last administered on 05/17/17 17:11; Admin Dose 15 MLS/HR; Start 05/17/17 at 16 :30 Procedures Procedures Stat bedside EKG: New onset AFib rate 140s ABG reviewed: LYNDON Calderon May 17, 2017 21:14
[2017-05-17 21:26] LABS: CALCIUM 8.9 mg/dl (8.4-10.2); CREATININE 0.54 mg/dl (0.61-1.24); MAGNESIUM 1.8 mg/dl (1.7-2.5); PHOSPHORUS 3.3 mg/dl (2.5-4.9)
[2017-05-17] MEDS ORDERED: MAGNESIUM SULFATE 1 GM/D5W 100 ML IVPB ONE (22:00)
[2017-05-17] MEDS ORDERED: POTASSIUM CHLORIDE 250 ML IVPB ONE (22:00)
[2017-05-17] MEDS ORDERED: FUROSEMIDE 40 MG INJ IV ONE (22:30)
[2017-05-17] MEDS ORDERED: LEVALBUTEROL (NEB) 0.63 MG/3 ML AMP HHN PRN (22:30)
[2017-05-17 22:44] LABS: TROPONIN-I 0.081 ng/ml (0.00-0.12)
[2017-05-17 22:53] LABS: CK-MB 2.26 ng/ml (0.0-2.4)
[2017-05-17 23:01] LABS: AADO2 Arterial 93.8 mmHg (7.0-24.0); Allen Test ACCEPTAB; Arterial Base Excess -0.9 mmol/L (-3.0-3); Arterial COHb 0.4 % (0.0-3.0); Arterial Fraction of Oxyhgb 97.1 % (93.0-99.0); Arterial HCO3 21.2 mmol/L (22.0-26.0); Arterial MetHb 0.3 % (0.0-1.5); Arterial Total Hemglobin 15.1 g/dl (12.0-18.0); MODE NASAL CANNULA
[2017-05-17] MEDS ORDERED: METHYLPREDNISOLONE 40 MG INJ IV ONE (23:30)
--- NOTE | 2017-05-17 23:37 | RADRPT ---
PROCEDURE: Chest. CLINICAL INDICATION: Chest pain. TECHNIQUE: Single frontal view of the chest was obtained. COMPARISON: 05/14/2017. FINDINGS: The cardiac silhouette is magnified. The aortic arch is calcified. There are increased interstitia l markings bilaterally. There are right upper lobe interstitial infiltrates. There is no pleural e ffusion. There is no pneumothorax. IMPRESSION: Bilateral increased interstitial markings and right upper lobe interstitial infiltrates, unchanged. Aortic atherosclerosis. .Fawad Bowen MD, MD Date Time Electronically viewed and signed by .Fawad Bowen MD, on 05/17/2017 23:37 .T/
[2017-05-18] VITALS (17 sets, daily range): BP systolic 104–159; BP diastolic 58–91; PULSE 59–87; RESP 18–24
[2017-05-18] MEDS: IPRATROPIUM (NEB) 0.5 MG/2.5 ML AMP HHN SCH ×6 (00:50→22:20)
[2017-05-18] MEDS: LEVALBUTEROL (NEB) 0.63 MG/3 ML AMP HHN SCH ×6 (00:50→22:21)
[2017-05-18] MEDS: ACCU-CHEK XX SCH ×6 (01:00→21:00)
[2017-05-18] MEDS: DILTIAZEM-D5W 125MG/125ML DRIP 125 ML IV SCH (01:08)
[2017-05-18] MEDS: LORAZEPAM 2 MG INJ IV PRN ×2 (04:29→21:00)
[2017-05-18] MEDS: PIPER-TAZO 3.375 GM IV (PMX) 100 ML IVPB SCH ×3 (05:47→22:36)
[2017-05-18 07:27] LABS: ABNORMAL IP MESSAGE 1; HEMATOCRIT 37.5 % (42.0-52.0); MEAN CORPUSCULAR HEMOGLOBIN 36.2 pg (29.0-33.0); MEAN CORPUSCULAR HGB CONC 34.7 g/dl (32.0-37.0); MEAN CORPUSCULAR VOLUME 104.5 fl (82.0-101.0); MEAN PLATELET VOLUME 10.4 fl (7.4-10.4); PLATELET COUNT 139 10^3/UL (140-415); RED BLOOD COUNT 3.59 10^6/ul (4.70-6.10); RED CELL DISTRIBUTION WIDTH 11.7 % (11.5-14.5); WHITE BLOOD COUNT 6.5 10^3/ul (4.8-10.8)
[2017-05-18 07:51] LABS: ALBUMIN 3.8 g/dl (3.3-4.9); CALCIUM 8.9 mg/dl (8.4-10.2); CREATININE 0.46 mg/dl (0.61-1.24); PHOSPHORUS 3.7 mg/dl (2.5-4.9); POTASSIUM 3.3 mmol/L (3.5-5.1)
[2017-05-18] MEDS: LEVETIRACETAM 1500 MG (PMX) 100 ML IVPB SCH ×2 (08:29→21:11)
[2017-05-18] MEDS: NICOTINE (21 MG/24 HR) PATCH TRANSDERM SCH (08:29)
[2017-05-18] MEDS: FAMOTIDINE 20 MG INJ IV SCH ×2 (08:29→21:00)
[2017-05-18] MEDS: MULTIVITAMINS 10 ML, THIAMINE 100 MG, FOLIC ACID 1 MG in SOD CHLORIDE 0.9% 1,000 ML IVPB SCH (08:29)
[2017-05-18] MEDS: DEXTROSE 5%-0.45% NACL 1,000 ML IV SCH (08:41)
[2017-05-18] MEDS: CHLORDIAZEPOXIDE 25 MG CAP PO SCH ×2 (09:00→13:00)
[2017-05-18 10:26] LABS: LYMPHOCYTES # 0.3 10^3/ul (0.8-2.9); MONOCYTE # 0.1 10^3/ul (0.3-0.9); NEUTROPHIL # 5.9 10^3/ul (1.6-7.5)
[2017-05-18 10:46] LABS: TROPONIN-I 0.045 ng/ml (0.00-0.12)
[2017-05-18 10:54] LABS: CK-MB 2.03 ng/ml (0.0-2.4)
[2017-05-18] MEDS ORDERED: POTASSIUM CHLORIDE 250 ML IVPB ONE (13:00)
--- NOTE | 2017-05-18 13:56 | PN ---
Date/Time of Note Date/Time of Note DATE: 05/18/17 TIME: 12:53 Assessment/Plan VTE Prophylaxis VTE Prophylaxis Intervention: SCD's Lines/Catheters IV [facility] Type (from [facility]): Peripheral IV Urinary Cath still in place: Yes Reason Cath still needed: other (indicate) (altered ) Assessment/Plan Assessment/Plan 77-year-old male who presented with seizures now managed as follows: 1. Persistent encephalopathy likely 2/2 withdrawal from alcohol / DTs: Improving 2. Newly diagnosed Paroxysmal Afib s/p RVR : spontaneously converted 3. S /p Status epilepticus/breakthrough seizures 4. Resp distress 2/2 #2 : resolved 5. Hypertension: Good control 6. Sepsis secondary to UTI: improving 7. Probable mild hyperosmolar non-ketotic hypoglycemia contributing to #1: resolved 8. Hyperbilirubinemia with likely underlying alcoholic liver disease 9. Aspiration pneumonia 10. Heavy alcohol and tobacco use per history 11. Previous hemorrhagic CVA PLAN: Patient slowly improving / Continue close monitoring and seizure precautions Appreciate neurology input and recommendations. Continue antiseizure meds Strict aspiration precautions Continue empiric antibiotics for UTI and bilateral aspiration pneumonia Await Cardiology review and recs / not likely to be a candidate for anticoagulation Continue supportive care with prophylaxis with SCDs and intravenous H2 blockers Will need alcohol and cessation counseling when mentation is improved Prognosis is still guarded Subjective 24 Hr Interval Summary Free Text/Dictation Patient seen and examined. still somnolent, but more lucid, no more resp distress calm, arousable Exam/Review of Systems Vital Signs Vitals Vital Signs Date Time Temp Pulse Resp B/P Pulse Ox O2 Delivery O2 Flow Rate FiO2 05/18/17 12:00 62 05/18/17 11:19 98.2 19 104/58 97 05/18/17 09:21 2.0 05/18/17 09:19 Nasal Cannula Intake and Output 05/17/17 05/17/17 05/18/17 15:00 23:00 07:00 Intake Total 100 ml 150 ml 1120 ml Output Total 800 ml 600 ml Balance 100 ml -650 ml 520 ml Exam Constitutional: frail, other (calm, arousable ) Head: atraumatic, normocephalic Eyes: PERRL ENMT: No mucosa pink and moist (dry) Neck: supple Respiratory: diminished breath sounds, wheezing, No congested cough, No labored breathing Cardiovascular: regular rate and rhythm, No murmurs/extra sounds Gastrointestinal: bowel sounds, non-tender, soft Neurological: lethargic Results Result Diagram: 05/18/17 0635 05/18/17 0635 Results 24 hrs Laboratory Tests Test 05/17/17 13:46 05/17/17 14:38 05/17/17 16:40 05/17/17 16:59 Bedside Glucose 126 123 Blood Gas Specimen Source Blood arterial Arterial Blood Date Drawn 05/17/2017 3:25:07 PM Arterial Blood pH (Temp corrected) 7.521 H Arterial Blood pCO2 (Temp correct) 27.1 L Arterial Blood pO2 (Temp corrected) 69.8 L Arterial Blood HCO3 21.7 L Arterial Blood Base Excess 0.4 Arterial Blood Oxygen Saturation 94.7 L Beto Test ACCEPTAB Arterial Blood Gas Puncture Site LB Arterial Blood Carboxyhemoglobin 0.8 Arterial Blood Methemoglobin 0.2 Blood Gas A-a O2 Differential 47.5 H Oxyhemoglobin Percent 93.8 Total Hemoglobin 15.8 Blood Gas Temperature 37.0 Blood Gas Respiration Rate 20.0 Blood Gas Modality ROOM AIR FiO2 21.0 Blood Gas Notified Whom T ADAIRII` Blood Gas Notified Time 05/17/2017 3:35:53 PM Phosphorus Level 2.8 Magnesium Level 2.2 Creatine Kinase Creatine Kinase Index 0.0 Creatinine Kinase MB (Mass) 2.71 H Troponin I 0.077 Test 05/17/17 20:55 05/17/17 21:48 05/17/17 22:40 05/18/17 02:02 Sodium Level 134 L Potassium Level 3.0 L Chloride Level 102 Carbon Dioxide Level 22 Anion Gap 13 Blood Urea Nitrogen 5 L Creatinine 0.54 L Glucose Level 115 Calcium Level 8.9 Phosphorus Level 3.3 Magnesium Level 1.8 Creatine Kinase 6768 H Creatine Kinase Index 0.0 Creatinine Kinase MB (Mass) 2.26 Troponin I 0.081 Bedside Glucose 122 113 Blood Gas Specimen Source Blood arterial Arterial Blood Date Drawn 05/17/2017 10:50:17 PM Arterial Blood pH (Temp corrected) 7.486 H Arterial Blood pCO2 (Temp correct) 28.7 L Arterial Blood pO2 (Temp corrected) 108.0 H Arterial Blood HCO3 21.2 L Arterial Blood Base Excess -0.9 Arterial Blood Oxygen Saturation 97.8 Beto Test ACCEPTAB Arterial Blood Gas Puncture Site Right Radial Arterial Blood Carboxyhemoglobin 0.4 Arterial Blood Methemoglobin 0.3 Blood Gas A-a O2 Differential 93.8 H Oxyhemoglobin Percent 97.1 Total Hemoglobin 15.1 Blood Gas Temperature 37.0 Blood Gas Modality NASAL CANNULA FiO2 33.0 Blood Gas Notified Whom JORGE Blood Gas Notified Time 05/17/2017 11:01:10 PM Test 05/18/17 05:44 05/18/17 06:35 05/18/17 08:27 05/18/17 12:41 Bedside Glucose 158 155 129 White Blood Count 6.5 # Red Blood Count 3.59 L Hemoglobin 13.0 L Hematocrit 37.5 L Mean Corpuscular Volume 104.5 H Mean Corpuscular Hemoglobin 36.2 H Mean Corpuscular Hemoglobin Concent 34.7 Red Cell Distribution Width 11.7 Platelet Count 139 L Mean Platelet Volume 10.4 Neutrophils % 90.0 H Band Neutrophils % 4.0 Lymphocytes % 5.0 L Monocytes % 1.0 Neutrophils # 5.9 Lymphocytes # 0.3 L Monocytes # 0.1 L Macrocytosis 1+ Sodium Level 140 Potassium Level 3.3 L Chloride Level 102 Carbon Dioxide Level 22 Anion Gap 19 H Blood Urea Nitrogen 6 L Creatinine 0.46 L Glucose Level 149 Calcium Level 8.9 Phosphorus Level 3.7 Magnesium Level 2.0 Total Bilirubin 1.0 Direct Bilirubin 0.00 Indirect Bilirubin 1.0 Aspartate Amino Transf (AST/SGOT) 109 H Alanine Aminotransferase (ALT/SGPT) 54 Alkaline Phosphatase 45 Creatine Kinase 6727 H Creatine Kinase Index 0.0 Creatinine Kinase MB (Mass) 2.03 Troponin I 0.045 Total Protein 6.0 L Albumin 3.8 Medications Medications Current Medications Famotidine (Pepcid Iv) 20 mg BID IV Last administered on 05/18/17 08:29; Admin Dose 20 MG; Start 05/14/17 at 21:00 Ondansetron HCl 4 mg 4 mg Q6H PRN IV NAUSEA AND/OR VOMITING; Start 05/14/17 at 18:30 Piperacillin Sod/ Tazobactam Sod 100 ml @ 200 mls/hr Q8 IVPB Last administered on 05/18/17 05:47; Admin Dose 200 MLS/HR; Start 05/15/17 at 06:00 Multivitamins 10 ml/Thiamine HCl 100 mg/Folic Acid 1 mg/Sodium Chloride 1,011.2 ml @ 125 mls/ hr DAILY@09 IVPB Last administered on 05/18/17 08:29; Admin Dose 125 MLS/HR; Start 05/15/17 at 09:00 Levetiracetam (Keppra 1,500mg/ 100ml (Pmx)) 100 ml @ 400 mls/hr BID IVPB Last administered on 05/18/17 08:29; Admin Dose 400 MLS/HR; Start 05/14/17 at 21:30 Nicotine 1 patch 1 patch DAILY TRANSDERM Last administered on 05/18/17 08:29; Admin Dose 1 PATCH; Start 05/15/17 at 12:00 Dextrose/Sodium Chloride (D5-1/2ns) 1,000 ml @ 75 mls/hr [id number] IV Last administered on 05/18/17 08:41; Admin Dose 75 MLS/HR; Start 05/15/17 at 14:00 Miscellaneous Information 1 ea NOTE XX ; Start 05/15/17 at 14:00 Glucose (Glutose) 15 gm Q15M PRN PO DECREASED GLUCOSE; Start 05/15/17 at 14:00 Glucose (Glutose) 22.5 gm Q15M PRN PO DECREASED GLUCOSE; Start 05/15/17 at 14: 00 Dextrose (D50w Syringe) 25 ml Q15M PRN IV DECREASED GLUCOSE; Start 05/15/17 at 14:00 Dextrose (D50w Syringe) 50 ml Q15M PRN IV DECREASED GLUCOSE; Start 05/15/17 at 14:00 Glucagon (Glucagen) 1 mg Q15M PRN IM DECREASED GLUCOSE; Start 05/15/17 at 14:00 Glucose (Glutose) 15 gm Q15M PRN BUCCAL DECREASED GLUCOSE; Start 05/15/17 at 14 :00 Diagnostic Test (Pha) (Accu-Chek) 1 ea Q4 XX Last administered on 05/18/17 08: 30; Admin Dose 1 EA; Start 05/16/17 at 21:00 Lorazepam (Ativan) 1 mg Q4H PRN IV AGITATION Last administered on 05/18/17 04: 29; Admin Dose 1 MG; Start 05/16/17 at 21:52 Lorazepam (Ativan) 2 mg Q2H PRN IV seizures; Start 05/16/17 at 23:00 Hydralazine HCl (Apresoline) 10 mg Q4H PRN IV ELEVATED BLOOD PRESSURE Last administered on 05/17/17 04:47; Admin Dose 10 MG; Start 05/17/17 at 05:00 Chlordiazepoxide 50 mg 50 mg TID PO Last administered on 05/17/17 22:26; Admin Dose 50 MG; Start 05/17/17 at 13:00 Diltiazem HCl (Cardizem-D5W 125 Mg/125 ml Drip) 125 ml @ 5 mls/hr TITRATE IV Last administered on 05/18/17 01:08; Admin Dose 10 MLS/HR; Start 05/17/17 at 16: 30 Procedures Procedures PROCEDURE: Chest. CLINICAL INDICATION: Chest pain. TECHNIQUE: Single frontal view of the chest was obtained. COMPARISON: 05/14/2017. FINDINGS: The cardiac silhouette is magnified. The aortic arch is calcified. There are increased interstitial markings bilaterally. There are right upper lobe interstitial infiltrates. There is no pleural effusion. There is no pneumothorax. IMPRESSION: Bilateral increased interstitial markings and right upper lobe interstitial infiltrates, unchanged. Aortic atherosclerosis. .Fawad Bowen MD, MD Date Time Electronically viewed and signed by .Fawad Bowen MD, MD on 05/17/2017 23:37 .T/ CC: JAK HARGROVE PROCEDURE: MR Brain without and with contrast. CLINICAL INDICATION: Seizures TECHNIQUE: A high resolution MRI of the brain was performed utilizing the following sequences: Sagittal and axial T1 weighted, axial T2 weighted, axial FLAIR, coronal GRE, and axial diffusion weighted with ADC mapping. Images were reviewed high-resolution PACS workstation. Coronal T1 3D SPGR sequences were also acquired. Additional axial and coronal post contrast images were obtained. 10 cc of ProHance was administered intravenously without reported complication. COMPARISON: Correlation head CT 05/14/2017 FINDINGS: No acute parenchymal hemorrhage, significant mass effect, or midline shift. No evidence of recent infarct. Foci of GRE susceptibility at the right parietal lobe. Subcortical, deep, and periventricular white matter T2-weighted/FLAIR hyperintensities are consistent with chronic microvascular ischemic disease. The mesial temporal lobes grossly demonstrate normal signal intensity and volume bilaterally. No coronal T2 or FLAIR sequence was acquired for further evaluation. Focal left temporal cortical encephalomalacia with GRE susceptibility. The ventricles are stable size with mild to moderate generalized volume loss noted. Normal flow voids are visible in the proximal intracranial arteries suggesting their patency. The visualized paranasal sinuses and mastoids are grossly clear. No abnormal parenchymal, dural or leptomeningeal enhancement. IMPRESSION: No evidence of acute intracranial abnormality or recent infarct. Left temporal cortical encephalomalacia with GRE susceptibility may be a sequela of prior hemorrhagic infarct. Foci of GRE susceptibility at the right parietal lobe may represent small cavernous malformations or a sequela of prior microhemorrhage. No enhancing intracranial mass. Moderate chronic microvascular ischemic changes. RPTAT: AA .Cade Willams MD, MD Date Time Electronically viewed and signed by .Cade Willams MD, on 05/17/2017 12:29 .T/ CC: LYNDON VILLASEÑOR BOLATITO M. May 18, 2017 13:03
--- NOTE | 2017-05-18 15:46 | CONS ---
Date/Time of Note Date/Time of Note DATE: 05/18/17 TIME: 15:41 Assessment/Plan Assessment/Plan Additional Assessment/Plan 1. Atrial fibrillation - paroxysmal - likely "holiday disease" EtOH abuse - presented to hospital with multiple seizures - already seeen by neuri - concurrently, had a. fib with RVR - now back to sinus. Con't med rx now - will establish EF with ECHO - NOT A CANDIDATE FOR ANTI-COAGULATION SECONDARY TO EtOh ABUSE AND FALLS. 2. HTN - well rx, con't to monitor. 3. EtOh abuse - primary follows 4. Falls - no global anti-coagulation, high risk of bleeding 5. Sz - neuro follows Consultation Date/Type/Reason Admit Date/Time May 16, 2017 at 08:40 Initial Consult Date Type of Consultation: neurology 24 HR Interval Summary Free Text/Dictation Cardiology Consult CC: a. fib with RVR HPI: 77 yo withHTN,CAD, hy/o EtOH abuse - presented to hospital with multiple seizures - already seeen by neuri - concurrently, had a. fib with RVR - now back to sinus. Con't med rx now - will establish EF with ECHO - NOT A CANDIDATE FOR ANTI-COAGULATION SECONDARY TO EtOh ABUSE AND FALLS. PMH: HTN,CAD, EtOh abuse, falls, Sz MEDS: reviewed Soc: h/o tobacco, h/o EtOH FH: HTN Exam/Review of Systems Vital Signs Vitals Vital Signs Date Time Temp Pulse Resp B/P Pulse Ox O2 Delivery O2 Flow Rate FiO2 05/18/17 15:24 98.2 68 19 135/67 98 05/18/17 14:01 2.0 05/18/17 14:00 Nasal Cannula Intake and Output 05/17/17 05/17/17 05/18/17 15:00 23:00 07:00 Intake Total 100 ml 150 ml 1120 ml Output Total 800 ml 600 ml Balance 100 ml -650 ml 520 ml Exam ROS: No fever, no chills, no nausea, no vomiting, no diarrhea/constipation No recent weight changes No chest pain, no PND, no orthopnea No dizziness, blurred vision No thirst, no heat or cold intolerance FALLS (per family) General: WN/WD/NAD, AOx 0 HEENT: Unicetric/atraumatic/EOMI (does not follow commands) NECK: JVD elevated, no thyromegaly Lymph: no lymphadenopathy HEART: regular with no S3, II/ systolic murmur at apex LUNGS: Coarse sounds ABD: soft, NT, ND, +BS : Intact Neuro: non focal SKIN: chronic changes EXT: trace edema Results Result Diagram: 05/18/17 0635 05/18/17 0635 Results 24 hrs Laboratory Tests Test 05/17/17 16:40 05/17/17 16:59 05/17/17 20:55 05/17/17 21:48 Phosphorus Level 2.8 3.3 Magnesium Level 2.2 1.8 Creatine Kinase 6768 H Creatine Kinase Index 0.0 0.0 Creatinine Kinase MB (Mass) 2.71 H 2.26 Troponin I 0.077 0.081 Bedside Glucose 123 122 Sodium Level 134 L Potassium Level 3.0 L Chloride Level 102 Carbon Dioxide Level 22 Anion Gap 13 Blood Urea Nitrogen 5 L Creatinine 0.54 L Glucose Level 115 Calcium Level 8.9 Test 05/17/17 22:40 05/18/17 02:02 05/18/17 05:44 05/18/17 06:35 Blood Gas Specimen Source Blood arterial Arterial Blood Date Drawn 05/17/2017 10:50:17 PM Arterial Blood pH (Temp corrected) 7.486 H Arterial Blood pCO2 (Temp correct) 28.7 L Arterial Blood pO2 (Temp corrected) 108.0 H Arterial Blood HCO3 21.2 L Arterial Blood Base Excess -0.9 Arterial Blood Oxygen Saturation 97.8 Beto Test ACCEPTAB Arterial Blood Gas Puncture Site Right Radial Arterial Blood Carboxyhemoglobin 0.4 Arterial Blood Methemoglobin 0.3 Blood Gas A-a O2 Differential 93.8 H Oxyhemoglobin Percent 97.1 Total Hemoglobin 15.1 Blood Gas Temperature 37.0 Blood Gas Modality NASAL CANNULA FiO2 33.0 Blood Gas Notified Whom MA Blood Gas Notified Time 05/17/2017 11:01:10 PM Bedside Glucose 113 158 White Blood Count 6.5 # Red Blood Count 3.59 L Hemoglobin 13.0 L Hematocrit 37.5 L Mean Corpuscular Volume 104.5 H Mean Corpuscular Hemoglobin 36.2 H Mean Corpuscular Hemoglobin Concent 34.7 Red Cell Distribution Width 11.7 Platelet Count 139 L Mean Platelet Volume 10.4 Neutrophils % 90.0 H Band Neutrophils % 4.0 Lymphocytes % 5.0 L Monocytes % 1.0 Neutrophils # 5.9 Lymphocytes # 0.3 L Monocytes # 0.1 L Macrocytosis 1+ Sodium Level 140 Potassium Level 3.3 L Chloride Level 102 Carbon Dioxide Level 22 Anion Gap 19 H Blood Urea Nitrogen 6 L Creatinine 0.46 L Glucose Level 149 Calcium Level 8.9 Phosphorus Level 3.7 Magnesium Level 2.0 Total Bilirubin 1.0 Direct Bilirubin 0.00 Indirect Bilirubin 1.0 Aspartate Amino Transf (AST/SGOT) 109 H Alanine Aminotransferase (ALT/SGPT) 54 Alkaline Phosphatase 45 Creatine Kinase 6727 H Creatine Kinase Index 0.0 Creatinine Kinase MB (Mass) 2.03 Troponin I 0.045 Total Protein 6.0 L Albumin 3.8 Test 05/18/17 08:27 05/18/17 12:41 Bedside Glucose 155 129 Medications Medications Current Medications Famotidine (Pepcid Iv) 20 mg BID IV Last administered on 05/18/17 08:29; Admin Dose 20 MG; Start 05/14/17 at 21:00 Ondansetron HCl 4 mg 4 mg Q6H PRN IV NAUSEA AND/OR VOMITING; Start 05/14/17 at 18:30 Piperacillin Sod/ Tazobactam Sod 100 ml @ 200 mls/hr Q8 IVPB Last administered on 05/18/17 13:15; Admin Dose 200 MLS/HR; Start 05/15/17 at 06:00 Multivitamins 10 ml/Thiamine HCl 100 mg/Folic Acid 1 mg/Sodium Chloride 1,011.2 ml @ 125 mls/ hr DAILY@09 IVPB Last administered on 05/18/17 08:29; Admin Dose 125 MLS/HR; Start 05/15/17 at 09:00 Levetiracetam (Keppra 1,500mg/ 100ml (Pmx)) 100 ml @ 400 mls/hr BID IVPB Last administered on 05/18/17 08:29; Admin Dose 400 MLS/HR; Start 05/14/17 at 21:30 Nicotine 1 patch 1 patch DAILY TRANSDERM Last administered on 05/18/17 08:29; Admin Dose 1 PATCH; Start 05/15/17 at 12:00 Dextrose/Sodium Chloride (D5-1/2ns) 1,000 ml @ 75 mls/hr [id number] IV Last administered on 05/18/17 08:41; Admin Dose 75 MLS/HR; Start 05/15/17 at 14:00 Miscellaneous Information 1 ea NOTE XX ; Start 05/15/17 at 14:00 Glucose (Glutose) 15 gm Q15M PRN PO DECREASED GLUCOSE; Start 05/15/17 at 14:00 Glucose (Glutose) 22.5 gm Q15M PRN PO DECREASED GLUCOSE; Start 05/15/17 at 14: 00 Dextrose (D50w Syringe) 25 ml Q15M PRN IV DECREASED GLUCOSE; Start 05/15/17 at 14:00 Dextrose (D50w Syringe) 50 ml Q15M PRN IV DECREASED GLUCOSE; Start 05/15/17 at 14:00 Glucagon (Glucagen) 1 mg Q15M PRN IM DECREASED GLUCOSE; Start 05/15/17 at 14:00 Glucose (Glutose) 15 gm Q15M PRN BUCCAL DECREASED GLUCOSE; Start 05/15/17 at 14 :00 Diagnostic Test (Pha) (Accu-Chek) 1 ea Q4 XX Last administered on 05/18/17 13: 01; Admin Dose 1 EA; Start 05/16/17 at 21:00 Lorazepam (Ativan) 1 mg Q4H PRN IV AGITATION Last administered on 05/18/17 04: 29; Admin Dose 1 MG; Start 05/16/17 at 21:52 Lorazepam (Ativan) 2 mg Q2H PRN IV seizures; Start 05/16/17 at 23:00 Hydralazine HCl (Apresoline) 10 mg Q4H PRN IV ELEVATED BLOOD PRESSURE Last administered on 05/17/17 04:47; Admin Dose 10 MG; Start 05/17/17 at 05:00 Chlordiazepoxide 50 mg 50 mg TID PO Last administered on 05/17/17 22:26; Admin Dose 50 MG; Start 05/17/17 at 13:00 Diltiazem HCl 125 ml @ 5 mls/hr TITRATE IV Last administered on 05/18/17 01:08 ; Admin Dose 10 MLS/HR; Start 05/17/17 at 16:30 Potassium Chloride (KCl 40 MEQ/250 ML NS) 250 ml @ 62.5 mls/hr ONCE ONCE IVPB Last administered on 05/18/17 13:15; Admin Dose 62.5 MLS/HR; Start 05/18/17 at 13:00; Stop 05/18/17 at 16:59 ANN KU MD May 18, 2017 15:46
--- NOTE | 2017-05-18 16:01 | CONS ---
Date/Time of Note Date/Time of Note DATE: 05/18/17 TIME: 15:58 Consult Date/Type/Reason Admit Date/Time May 16, 2017 at 08:40 Type of Consultation: neurology Subjective no acute neuro events. No seizures, per daughter. More awake per daughter, still confused. MRI no new CVA. Objective Vital Signs Date Time Temp Pulse Resp B/P Pulse Ox O2 Delivery O2 Flow Rate FiO2 05/18/17 15:24 98.2 68 19 135/67 98 05/18/17 14:01 2.0 05/18/17 14:00 Nasal Cannula Intake and Output 05/17/17 05/17/17 05/18/17 15:00 23:00 07:00 Intake Total 100 ml 150 ml 1120 ml Output Total 800 ml 600 ml Balance 100 ml -650 ml 520 ml Results/Medications Result Diagram: 05/18/17 0635 05/18/17 0635 Results 24 hrs Laboratory Tests Test 05/17/17 16:40 05/17/17 16:59 05/17/17 20:55 05/17/17 21:48 Phosphorus Level 2.8 3.3 Magnesium Level 2.2 1.8 Creatine Kinase 6768 H Creatine Kinase Index 0.0 0.0 Creatinine Kinase MB (Mass) 2.71 H 2.26 Troponin I 0.077 0.081 Bedside Glucose 123 122 Sodium Level 134 L Potassium Level 3.0 L Chloride Level 102 Carbon Dioxide Level 22 Anion Gap 13 Blood Urea Nitrogen 5 L Creatinine 0.54 L Glucose Level 115 Calcium Level 8.9 Test 05/17/17 22:40 05/18/17 02:02 05/18/17 05:44 05/18/17 06:35 Blood Gas Specimen Source Blood arterial Arterial Blood Date Drawn 05/17/2017 10:50:17 PM Arterial Blood pH (Temp corrected) 7.486 H Arterial Blood pCO2 (Temp correct) 28.7 L Arterial Blood pO2 (Temp corrected) 108.0 H Arterial Blood HCO3 21.2 L Arterial Blood Base Excess -0.9 Arterial Blood Oxygen Saturation 97.8 Beto Test ACCEPTAB Arterial Blood Gas Puncture Site Right Radial Arterial Blood Carboxyhemoglobin 0.4 Arterial Blood Methemoglobin 0.3 Blood Gas A-a O2 Differential 93.8 H Oxyhemoglobin Percent 97.1 Total Hemoglobin 15.1 Blood Gas Temperature 37.0 Blood Gas Modality NASAL CANNULA FiO2 33.0 Blood Gas Notified Whom MA Blood Gas Notified Time 05/17/2017 11:01:10 PM Bedside Glucose 113 158 White Blood Count 6.5 # Red Blood Count 3.59 L Hemoglobin 13.0 L Hematocrit 37.5 L Mean Corpuscular Volume 104.5 H Mean Corpuscular Hemoglobin 36.2 H Mean Corpuscular Hemoglobin Concent 34.7 Red Cell Distribution Width 11.7 Platelet Count 139 L Mean Platelet Volume 10.4 Neutrophils % 90.0 H Band Neutrophils % 4.0 Lymphocytes % 5.0 L Monocytes % 1.0 Neutrophils # 5.9 Lymphocytes # 0.3 L Monocytes # 0.1 L Macrocytosis 1+ Sodium Level 140 Potassium Level 3.3 L Chloride Level 102 Carbon Dioxide Level 22 Anion Gap 19 H Blood Urea Nitrogen 6 L Creatinine 0.46 L Glucose Level 149 Calcium Level 8.9 Phosphorus Level 3.7 Magnesium Level 2.0 Total Bilirubin 1.0 Direct Bilirubin 0.00 Indirect Bilirubin 1.0 Aspartate Amino Transf (AST/SGOT) 109 H Alanine Aminotransferase (ALT/SGPT) 54 Alkaline Phosphatase 45 Creatine Kinase 6727 H Creatine Kinase Index 0.0 Creatinine Kinase MB (Mass) 2.03 Troponin I 0.045 Total Protein 6.0 L Albumin 3.8 Test 05/18/17 08:27 05/18/17 12:41 Bedside Glucose 155 129 Medications Current Medications Famotidine (Pepcid Iv) 20 mg BID IV Last administered on 05/18/17 08:29; Admin Dose 20 MG; Start 05/14/17 at 21:00 Ondansetron HCl 4 mg 4 mg Q6H PRN IV NAUSEA AND/OR VOMITING; Start 05/14/17 at 18:30 Piperacillin Sod/ Tazobactam Sod 100 ml @ 200 mls/hr Q8 IVPB Last administered on 05/18/17 13:15; Admin Dose 200 MLS/HR; Start 05/15/17 at 06:00 Multivitamins 10 ml/Thiamine HCl 100 mg/Folic Acid 1 mg/Sodium Chloride 1,011.2 ml @ 125 mls/ hr DAILY@09 IVPB Last administered on 05/18/17 08:29; Admin Dose 125 MLS/HR; Start 05/15/17 at 09:00 Levetiracetam (Keppra 1,500mg/ 100ml (Pmx)) 100 ml @ 400 mls/hr BID IVPB Last administered on 05/18/17 08:29; Admin Dose 400 MLS/HR; Start 05/14/17 at 21:30 Nicotine 1 patch 1 patch DAILY TRANSDERM Last administered on 05/18/17 08:29; Admin Dose 1 PATCH; Start 05/15/17 at 12:00 Dextrose/Sodium Chloride (D5-1/2ns) 1,000 ml @ 75 mls/hr [id number] IV Last administered on 05/18/17 08:41; Admin Dose 75 MLS/HR; Start 05/15/17 at 14:00 Miscellaneous Information 1 ea NOTE XX ; Start 05/15/17 at 14:00 Glucose (Glutose) 15 gm Q15M PRN PO DECREASED GLUCOSE; Start 05/15/17 at 14:00 Glucose (Glutose) 22.5 gm Q15M PRN PO DECREASED GLUCOSE; Start 05/15/17 at 14: 00 Dextrose (D50w Syringe) 25 ml Q15M PRN IV DECREASED GLUCOSE; Start 05/15/17 at 14:00 Dextrose (D50w Syringe) 50 ml Q15M PRN IV DECREASED GLUCOSE; Start 05/15/17 at 14:00 Glucagon (Glucagen) 1 mg Q15M PRN IM DECREASED GLUCOSE; Start 05/15/17 at 14:00 Glucose (Glutose) 15 gm Q15M PRN BUCCAL DECREASED GLUCOSE; Start 05/15/17 at 14 :00 Diagnostic Test (Pha) (Accu-Chek) 1 ea Q4 XX Last administered on 05/18/17 13: 01; Admin Dose 1 EA; Start 05/16/17 at 21:00 Lorazepam (Ativan) 1 mg Q4H PRN IV AGITATION Last administered on 05/18/17 04: 29; Admin Dose 1 MG; Start 05/16/17 at 21:52 Lorazepam (Ativan) 2 mg Q2H PRN IV seizures; Start 05/16/17 at 23:00 Hydralazine HCl (Apresoline) 10 mg Q4H PRN IV ELEVATED BLOOD PRESSURE Last administered on 05/17/17 04:47; Admin Dose 10 MG; Start 05/17/17 at 05:00 Chlordiazepoxide 50 mg 50 mg TID PO Last administered on 05/17/17 22:26; Admin Dose 50 MG; Start 05/17/17 at 13:00 Diltiazem HCl 125 ml @ 5 mls/hr TITRATE IV Last administered on 05/18/17 01:08 ; Admin Dose 10 MLS/HR; Start 05/17/17 at 16:30 Potassium Chloride (KCl 40 MEQ/250 ML NS) 250 ml @ 62.5 mls/hr ONCE ONCE IVPB Last administered on 05/18/17 13:15; Admin Dose 62.5 MLS/HR; Start 05/18/17 at 13:00; Stop 05/18/17 at 16:59 Heparin Sodium (Porcine) (Heparin (5000 Units/0.5 ml)) 5,000 unit BID SC ; Start 05/18/17 at 21:00 Assessment/Plan Chief Complaint/Hosp Course PHYSICAL EXAMINATION: GENERAL: Not in acute distress, lying in bed. HEENT: Normocephalic, atraumatic head. NECK: No carotid bruits. No thyromegaly. LUNGS: Clear to auscultation bilaterally. CARDIAC: Normal cardiac rhythm and sounds. ABDOMEN: Soft. EXTREMITIES: No cyanosis, clubbing, or edema. Tenderness to palpation in the right buttock and lumbar spinous processes. NEUROLOGIC: He is lethargic, briefly arousable, fluent speech, not oriented, looks bilaterally. Cranial nerve examination shows intact visual munoz bilaterally to threat. Pupils round, reactive to light from 3 to 2 mm bilaterally. Extraocular movements intact without nystagmus. Symmetrical face. Preserved facial strength and sensation. Corneals and gag OK. Motor strength examination is preserved in all extremities. Normal bulk, tone. Moves to pain. Deep tendon reflexes 1+ upper extremities, absent in lower extremities. Downgoing toes bilaterally. No tremor. IMPRESSION: Seizure d/o. ETOH abuse. Continue Keppra 1500 bid. EEG no ongoing seizures, c/w encephalopathy. Watch for ETOH withdrawal, cont benzos Problems: KRISTEN MATHIS MD May 18, 2017 16:00
[2017-05-18] MEDS: METOPROLOL 25 MG TAB PO SCH (21:00)
[2017-05-18] MEDS: HEPARIN 5,000 UNIT/0.5 ML VIAL SC SCH (21:41)
[2017-05-19] VITALS (15 sets, daily range): BP systolic 124–187; BP diastolic 67–82; PULSE 75–100; RESP 18–20
[2017-05-19] MEDS ORDERED: LORAZEPAM 2 MG INJ IV ONE (00:30)
[2017-05-19] MEDS: ACCU-CHEK XX SCH ×6 (01:00→21:18)
[2017-05-19] MEDS: IPRATROPIUM (NEB) 0.5 MG/2.5 ML AMP HHN SCH ×4 (01:47→13:33)
[2017-05-19] MEDS: LEVALBUTEROL (NEB) 0.63 MG/3 ML AMP HHN SCH ×6 (01:47→21:34)
[2017-05-19] MEDS: DEXTROSE 5%-0.45% NACL 1,000 ML IV SCH ×2 (03:00→11:28)
[2017-05-19] MEDS: LORAZEPAM 2 MG INJ IV PRN ×2 (03:12→23:29)
[2017-05-19] MEDS: hydrALAzine 20 MG INJ IV PRN (03:12)
[2017-05-19] MEDS: PIPER-TAZO 3.375 GM IV (PMX) 100 ML IVPB SCH ×3 (05:13→22:34)
[2017-05-19 06:46] LABS: HEMOGLOBIN 12.9 g/dl (14.0-18.0); LYMPHOCYTES # 1.3 10^3/ul (0.8-2.9); RED CELL DISTRIBUTION WIDTH 11.6 % (11.5-14.5); WHITE BLOOD COUNT 7.8 10^3/ul (4.8-10.8)
[2017-05-19 06:59] LABS: INR 1.09; PROTIME 14.1 Sec (12.2-14.2); PT RATIO 1.1
[2017-05-19 07:00] LABS: PARTIAL THROMBOPLASTIN TIME 26.7 Sec (25.0-35.0)
[2017-05-19 07:15] LABS: ALBUMIN 3.7 g/dl (3.3-4.9); BILIRUBIN,INDIRECT 0.9 mg/dl (0-1.1); BILIRUBIN,TOTAL 0.9 mg/dl (0.2-1.3); CALCIUM 9.5 mg/dl (8.4-10.2); CREATININE 0.48 mg/dl (0.61-1.24); TOTAL PROTEIN 5.8 g/dl (6.1-8.1)
[2017-05-19 07:16] LABS: ADD SCAN DIFF NO
[2017-05-19] MEDS: MULTIVITAMINS 10 ML, THIAMINE 100 MG, FOLIC ACID 1 MG in SOD CHLORIDE 0.9% 1,000 ML IVPB SCH (08:12)
[2017-05-19] MEDS: LEVETIRACETAM 1500 MG (PMX) 100 ML IVPB SCH ×2 (08:18→21:12)
[2017-05-19] MEDS: HEPARIN 5,000 UNIT/0.5 ML VIAL SC SCH ×2 (08:18→21:18)
[2017-05-19] MEDS: NICOTINE (21 MG/24 HR) PATCH TRANSDERM SCH (08:20)
[2017-05-19] MEDS: FAMOTIDINE 20 MG INJ IV SCH ×2 (08:20→20:59)
[2017-05-19] MEDS: METOPROLOL 25 MG TAB PO SCH ×2 (08:32→20:59)
[2017-05-19 09:07] LABS: BASOPHILS % 0.3 % (0.0-2.0); EOSINOPHILS % 0.4 % (0.0-7.0); HEMATOCRIT 36.1 % (42.0-52.0); MEAN CORPUSCULAR HEMOGLOBIN 37.3 pg (29.0-33.0); MEAN CORPUSCULAR HGB CONC 35.7 g/dl (32.0-37.0); MEAN CORPUSCULAR VOLUME 104.3 fl (82.0-101.0); MEAN PLATELET VOLUME 9.6 fl (7.4-10.4); MONOCYTE # 0.7 10^3/ul (0.3-0.9); MONOCYTES % 9.2 % (0.0-11.0); NEUTROPHIL # 5.8 10^3/ul (1.6-7.5); NEUTROPHILS % 73.8 % (39.0-77.0); PLATELET COUNT 171 10^3/UL (140-415); RED BLOOD COUNT 3.46 10^6/ul (4.70-6.10)
--- NOTE | 2017-05-19 14:25 | CONS ---
Date/Time of Note Date/Time of Note DATE: 05/19/17 TIME: 14:23 Assessment/Plan Assessment/Plan Additional Assessment/Plan 1. Atrial fibrillation - paroxysmal - likely "holiday disease" EtOH abuse - presented to hospital with multiple seizures - already seeen by neuri - concurrently, had a. fib with RVR - now back to sinus. Con't med rx now - will establish EF with ECHO - NOT A CANDIDATE FOR ANTI-COAGULATION SECONDARY TO EtOh - IN sinmus now > 24 hrs 2. HTN - well rx, con't to monitor. 3. EtOh abuse - primary follows 4. Falls - no global anti-coagulation, high risk of bleeding 5. Sz - neuro follows - now more awake Consultation Date/Type/Reason Admit Date/Time May 16, 2017 at 08:40 Type of Consultation: neurology 24 HR Interval Summary Free Text/Dictation Now more awake - no new episodes of a. fib ROS: No fever, no chills, no nausea, no vomiting, no diarrhea/constipation No recent weight changes No chest pain, no PND, no orthopnea No dizziness, blurred vision No thirst, no heat or cold intolerance Exam/Review of Systems Vital Signs Vitals Vital Signs Date Time Temp Pulse Resp B/P Pulse Ox O2 Delivery O2 Flow Rate FiO2 05/19/17 14:22 97.5 56 18 136/80 98 05/19/17 13:40 2.0 05/19/17 13:39 Nasal Cannula 05/19/17 05:07 28 Intake and Output 05/18/17 05/18/17 05/19/17 15:00 23:00 07:00 Output Total 750 ml 200 ml Balance -750 ml -200 ml Exam General: WN/WD/NAD, AOx 1-2 HEENT: Unicetric/atraumatic/EOMI (follow commands) NECK: JVD elevated, no thyromegaly Lymph: no lymphadenopathy HEART: regular with no S3, II/ systolic murmur at apex LUNGS: Coarse sounds ABD: soft, NT, ND, +BS : Intact Neuro: non focal SKIN: chronic changes EXT: trace edema Results Result Diagram: 05/19/17 0600 05/19/17 0600 Results 24 hrs Laboratory Tests Test 05/18/17 17:35 05/18/17 22:33 05/19/17 05:07 05/19/17 06:00 Bedside Glucose 130 118 109 White Blood Count 7.8 Red Blood Count 3.46 L Hemoglobin 12.9 L Hematocrit 36.1 L Mean Corpuscular Volume 104.3 H Mean Corpuscular Hemoglobin 37.3 H Mean Corpuscular Hemoglobin Concent 35.7 Red Cell Distribution Width 11.6 Platelet Count 171 # Mean Platelet Volume 9.6 Neutrophils % 73.8 Lymphocytes % 16.0 Monocytes % 9.2 Eosinophils % 0.4 Basophils % 0.3 Nucleated Red Blood Cells % 0.0 Neutrophils # 5.8 Lymphocytes # 1.3 Monocytes # 0.7 Eosinophils # 0.0 Basophils # 0.0 Nucleated Red Blood Cells # 0.0 Prothrombin Time 14.1 Prothrombin Time Ratio 1.1 INR International Normalized Ratio 1.09 Activated Partial Thromboplast Time 26.7 Sodium Level 141 Potassium Level 3.0 L Chloride Level 103 Carbon Dioxide Level 24 Anion Gap 17 H Blood Urea Nitrogen 8 Creatinine 0.48 L Glucose Level 97 # Calcium Level 9.5 Total Bilirubin 0.9 Direct Bilirubin 0.00 Indirect Bilirubin 0.9 Aspartate Amino Transf (AST/SGOT) 111 H Alanine Aminotransferase (ALT/SGPT) 56 Alkaline Phosphatase 47 Total Protein 5.8 L Albumin 3.7 Test 05/19/17 08:40 05/19/17 13:07 Bedside Glucose 116 120 Medications Medications Current Medications Famotidine (Pepcid Iv) 20 mg BID IV Last administered on 05/19/17 08:20; Admin Dose 20 MG; Start 05/14/17 at 21:00 Ondansetron HCl 4 mg 4 mg Q6H PRN IV NAUSEA AND/OR VOMITING; Start 05/14/17 at 18:30 Piperacillin Sod/ Tazobactam Sod 100 ml @ 200 mls/hr Q8 IVPB Last administered on 05/19/17 13:07; Admin Dose 200 MLS/HR; Start 05/15/17 at 06:00 Multivitamins 10 ml/Thiamine HCl 100 mg/Folic Acid 1 mg/Sodium Chloride 1,011.2 ml @ 125 mls/ hr DAILY@09 IVPB Last administered on 05/19/17 08:12; Admin Dose 125 MLS/HR; Start 05/15/17 at 09:00 Levetiracetam (Keppra 1,500mg/ 100ml (Pmx)) 100 ml @ 400 mls/hr BID IVPB Last administered on 05/19/17 08:18; Admin Dose 400 MLS/HR; Start 05/14/17 at 21:30 Nicotine 1 patch 1 patch DAILY TRANSDERM Last administered on 05/19/17 08:20; Admin Dose 1 PATCH; Start 05/15/17 at 12:00 Dextrose/Sodium Chloride (D5-1/2ns) 1,000 ml @ 75 mls/hr [id number] IV Last administered on 05/19/17 11:28; Admin Dose 75 MLS/HR; Start 05/15/17 at 14:00 Miscellaneous Information 1 ea NOTE XX ; Start 05/15/17 at 14:00 Glucose (Glutose) 15 gm Q15M PRN PO DECREASED GLUCOSE; Start 05/15/17 at 14:00 Glucose (Glutose) 22.5 gm Q15M PRN PO DECREASED GLUCOSE; Start 05/15/17 at 14: 00 Dextrose (D50w Syringe) 25 ml Q15M PRN IV DECREASED GLUCOSE; Start 05/15/17 at 14:00 Dextrose (D50w Syringe) 50 ml Q15M PRN IV DECREASED GLUCOSE; Start 05/15/17 at 14:00 Glucagon (Glucagen) 1 mg Q15M PRN IM DECREASED GLUCOSE; Start 05/15/17 at 14:00 Glucose (Glutose) 15 gm Q15M PRN BUCCAL DECREASED GLUCOSE; Start 05/15/17 at 14 :00 Diagnostic Test (Pha) (Accu-Chek) 1 ea Q4 XX Last administered on 05/19/17 13: 07; Admin Dose 1 EA; Start 05/16/17 at 21:00 Lorazepam (Ativan) 1 mg Q4H PRN IV AGITATION Last administered on 05/19/17 03: 12; Admin Dose 1 MG; Start 05/16/17 at 21:52 Lorazepam (Ativan) 2 mg Q2H PRN IV seizures; Start 05/16/17 at 23:00 Hydralazine HCl (Apresoline) 10 mg Q4H PRN IV ELEVATED BLOOD PRESSURE Last administered on 05/19/17 03:12; Admin Dose 10 MG; Start 05/17/17 at 05:00 Heparin Sodium (Porcine) (Heparin (5000 Units/0.5 ml)) 5,000 unit BID SC Last administered on 05/19/17 08:18; Admin Dose 5,000 UNIT; Start 05/18/17 at 21:00 Metoprolol Tartrate (Lopressor) 25 mg BID PO Last administered on 05/19/17 08: 32; Admin Dose 25 MG; Start 05/18/17 at 21:00 ANN KU MD May 19, 2017 14:25
--- NOTE | 2017-05-19 18:39 | PN ---
Date/Time of Note Date/Time of Note DATE: 05/19/17 TIME: 18:37 Assessment/Plan VTE Prophylaxis VTE Prophylaxis Intervention: SCD's Lines/Catheters IV Catheter Type (from [facility]): Peripheral IV Urinary Cath still in place: No (pulled out by patient ) Assessment/Plan Assessment/Plan 77-year-old male who presented with seizures now managed as follows: 1. Persistent encephalopathy likely 2/2 withdrawal from alcohol / DTs: seems to be improving slowly 2. Newly diagnosed Paroxysmal Afib s/p RVR : spontaneously converted 3. S /p Status epilepticus/breakthrough seizures 4. Resp distress 2/2 #2 : resolved 5. Hypertension: Good control 6. Sepsis secondary to UTI: improving 7. Probable mild hyperosmolar non-ketotic hypoglycemia contributing to #1: resolved 8. Hyperbilirubinemia with likely underlying alcoholic liver disease 9. Aspiration pneumonia 10. Heavy alcohol and tobacco use per history 11. Previous hemorrhagic CVA PLAN: Patient slowly improving / Continue close monitoring and seizure precautions Appreciate neurology input and recommendations. Continue antiseizure meds Strict aspiration precautions Continue empiric antibiotics for UTI and bilateral aspiration pneumonia Appreciate Cardiology review and recs / not a candidate for anticoagulation PT eval Continue supportive care with prophylaxis with SCDs and intravenous H2 blockers Will need alcohol and cessation counseling when mentation is improved Prognosis is still guarded Subjective 24 Hr Interval Summary Free Text/Dictation Pulled out acosta last night, no evidence of bleeding, still very somnolent and lethargic Asks for food per family Exam/Review of Systems Vital Signs Vitals Vital Signs Date Time Temp Pulse Resp B/P Pulse Ox O2 Delivery O2 Flow Rate FiO2 05/19/17 17:58 2.0 05/19/17 16:26 97.8 59 18 124/67 99 05/19/17 13:39 Nasal Cannula 05/19/17 05:07 28 Intake and Output 05/18/17 05/18/17 05/19/17 15:00 23:00 07:00 Output Total 750 ml 200 ml Balance -750 ml -200 ml Exam Constitutional: frail, other (calm, arousable ) Head: atraumatic, normocephalic Eyes: PERRL ENMT: No mucosa pink and moist (dry) Neck: supple Respiratory: diminished breath sounds, wheezing, No congested cough, No labored breathing Cardiovascular: regular rate and rhythm, No murmurs/extra sounds Gastrointestinal: bowel sounds, non-tender, soft Neurological: lethargic Results Result Diagram: 05/19/17 0600 05/19/17 0600 Results 24 hrs Laboratory Tests Test 05/18/17 22:33 05/19/17 05:07 05/19/17 06:00 05/19/17 08:40 Bedside Glucose 118 109 116 White Blood Count 7.8 Red Blood Count 3.46 L Hemoglobin 12.9 L Hematocrit 36.1 L Mean Corpuscular Volume 104.3 H Mean Corpuscular Hemoglobin 37.3 H Mean Corpuscular Hemoglobin Concent 35.7 Red Cell Distribution Width 11.6 Platelet Count 171 # Mean Platelet Volume 9.6 Neutrophils % 73.8 Lymphocytes % 16.0 Monocytes % 9.2 Eosinophils % 0.4 Basophils % 0.3 Nucleated Red Blood Cells % 0.0 Neutrophils # 5.8 Lymphocytes # 1.3 Monocytes # 0.7 Eosinophils # 0.0 Basophils # 0.0 Nucleated Red Blood Cells # 0.0 Prothrombin Time 14.1 Prothrombin Time Ratio 1.1 INR International Normalized Ratio 1.09 Activated Partial Thromboplast Time 26.7 Sodium Level 141 Potassium Level 3.0 L Chloride Level 103 Carbon Dioxide Level 24 Anion Gap 17 H Blood Urea Nitrogen 8 Creatinine 0.48 L Glucose Level 97 # Calcium Level 9.5 Total Bilirubin 0.9 Direct Bilirubin 0.00 Indirect Bilirubin 0.9 Aspartate Amino Transf (AST/SGOT) 111 H Alanine Aminotransferase (ALT/SGPT) 56 Alkaline Phosphatase 47 Total Protein 5.8 L Albumin 3.7 Test 05/19/17 13:07 05/19/17 16:48 Bedside Glucose 120 131 Medications Medications Current Medications Famotidine (Pepcid Iv) 20 mg BID IV Last administered on 05/19/17 08:20; Admin Dose 20 MG; Start 05/14/17 at 21:00 Ondansetron HCl 4 mg 4 mg Q6H PRN IV NAUSEA AND/OR VOMITING; Start 05/14/17 at 18:30 Piperacillin Sod/ Tazobactam Sod 100 ml @ 200 mls/hr Q8 IVPB Last administered on 05/19/17 13:07; Admin Dose 200 MLS/HR; Start 05/15/17 at 06:00 Multivitamins 10 ml/Thiamine HCl 100 mg/Folic Acid 1 mg/Sodium Chloride 1,011.2 ml @ 125 mls/ hr DAILY@09 IVPB Last administered on 05/19/17 08:12; Admin Dose 125 MLS/HR; Start 05/15/17 at 09:00 Levetiracetam (Keppra 1,500mg/ 100ml (Pmx)) 100 ml @ 400 mls/hr BID IVPB Last administered on 05/19/17 08:18; Admin Dose 400 MLS/HR; Start 05/14/17 at 21:30 Nicotine 1 patch 1 patch DAILY TRANSDERM Last administered on 05/19/17 08:20; Admin Dose 1 PATCH; Start 05/15/17 at 12:00 Dextrose/Sodium Chloride (D5-1/2ns) 1,000 ml @ 75 mls/hr [id number] IV Last administered on 05/19/17 11:28; Admin Dose 75 MLS/HR; Start 05/15/17 at 14:00 Miscellaneous Information 1 ea NOTE XX ; Start 05/15/17 at 14:00 Glucose (Glutose) 15 gm Q15M PRN PO DECREASED GLUCOSE; Start 05/15/17 at 14:00 Glucose (Glutose) 22.5 gm Q15M PRN PO DECREASED GLUCOSE; Start 05/15/17 at 14: 00 Dextrose (D50w Syringe) 25 ml Q15M PRN IV DECREASED GLUCOSE; Start 05/15/17 at 14:00 Dextrose (D50w Syringe) 50 ml Q15M PRN IV DECREASED GLUCOSE; Start 05/15/17 at 14:00 Glucagon (Glucagen) 1 mg Q15M PRN IM DECREASED GLUCOSE; Start 05/15/17 at 14:00 Glucose (Glutose) 15 gm Q15M PRN BUCCAL DECREASED GLUCOSE; Start 05/15/17 at 14 :00 Diagnostic Test (Pha) (Accu-Chek) 1 ea Q4 XX Last administered on 05/19/17 17: 06; Admin Dose 1 EA; Start 05/16/17 at 21:00 Lorazepam (Ativan) 1 mg Q4H PRN IV AGITATION Last administered on 05/19/17 03: 12; Admin Dose 1 MG; Start 05/16/17 at 21:52 Lorazepam (Ativan) 2 mg Q2H PRN IV seizures; Start 6/29/17 at 23:00 Hydralazine HCl (Apresoline) 10 mg Q4H PRN IV ELEVATED BLOOD PRESSURE Last administered on 05/19/17 03:12; Admin Dose 10 MG; Start 05/17/17 at 05:00 Heparin Sodium (Porcine) (Heparin (5000 Units/0.5 ml)) 5,000 unit BID SC Last administered on 05/19/17 08:18; Admin Dose 5,000 UNIT; Start 05/18/17 at 21:00 Metoprolol Tartrate (Lopressor) 25 mg BID PO Last administered on 05/19/17 08: 32; Admin Dose 25 MG; Start 05/18/17 at 21:00 LYNDON VILLASEÑOR May 19, 2017 18:39
[2017-05-20] VITALS (9 sets, daily range): BP systolic 81–173; BP diastolic 51–80; PULSE 50–80; RESP 18–20
[2017-05-20] MEDS: DEXTROSE 5%-0.45% NACL 1,000 ML IV SCH (00:40)
[2017-05-20] MEDS: ACCU-CHEK XX SCH ×3 (01:00→09:25)
[2017-05-20] MEDS ORDERED: HALOPERIDOL 5 MG INJ IM ONE (02:00)
[2017-05-20] MEDS: LEVALBUTEROL (NEB) 0.63 MG/3 ML AMP HHN SCH ×4 (02:36→13:24)
[2017-05-20] MEDS: PIPER-TAZO 3.375 GM IV (PMX) 100 ML IVPB SCH (05:18)
[2017-05-20 06:11] LABS: BASOPHILS % 0.3 % (0.0-2.0); EOSINOPHILS # 0.1 10^3/ul (0.0-0.5); EOSINOPHILS % 2.2 % (0.0-7.0); HEMATOCRIT 39.3 % (42.0-52.0); HEMOGLOBIN 13.6 g/dl (14.0-18.0); LYMPHOCYTES # 1.7 10^3/ul (0.8-2.9); LYMPHOCYTES % 28.7 % (15.0-51.0); MEAN CORPUSCULAR HEMOGLOBIN 36.3 pg (29.0-33.0); MEAN CORPUSCULAR HGB CONC 34.6 g/dl (32.0-37.0); MEAN CORPUSCULAR VOLUME 104.8 fl (82.0-101.0); MEAN PLATELET VOLUME 9.3 fl (7.4-10.4); MONOCYTE # 0.7 10^3/ul (0.3-0.9); MONOCYTES % 12.3 % (0.0-11.0); NEUTROPHIL # 3.3 10^3/ul (1.6-7.5); NEUTROPHILS % 56.2 % (39.0-77.0); PLATELET COUNT 191 10^3/UL (140-415); RED BLOOD COUNT 3.75 10^6/ul (4.70-6.10); RED CELL DISTRIBUTION WIDTH 11.7 % (11.5-14.5); WHITE BLOOD COUNT 5.9 10^3/ul (4.8-10.8)
[2017-05-20 06:39] LABS: INR 0.95; PROTIME 12.7 Sec (12.2-14.2)
[2017-05-20 06:40] LABS: PARTIAL THROMBOPLASTIN TIME 27.5 Sec (25.0-35.0)
[2017-05-20 06:47] LABS: CALCIUM 9.8 mg/dl (8.4-10.2); CREATININE 0.65 mg/dl (0.61-1.24); POTASSIUM 3.1 mmol/L (3.5-5.1)
[2017-05-20] MEDS: MULTIVITAMINS 10 ML, THIAMINE 100 MG, FOLIC ACID 1 MG in SOD CHLORIDE 0.9% 1,000 ML IVPB SCH (08:44)
[2017-05-20] MEDS: NICOTINE (21 MG/24 HR) PATCH TRANSDERM SCH (10:20)
[2017-05-20] MEDS: HEPARIN 5,000 UNIT/0.5 ML VIAL SC SCH (10:20)
[2017-05-20] MEDS: FAMOTIDINE 20 MG INJ IV SCH (10:20)
[2017-05-20] MEDS: LEVETIRACETAM 1500 MG (PMX) 100 ML IVPB SCH (10:20)
[2017-05-20] MEDS ORDERED: POTASSIUM CHLORIDE 250 ML IVPB SCH (12:00)
[2017-05-20] MEDS ORDERED: POTASSIUM CHLORIDE (SR) 20 MEQ TAB PO STA (12:36)
[2017-05-20] MEDS ORDERED: LEVE750T70 PO (12:39)
[2017-05-20] MEDS ORDERED: ASPI-664 PO (12:39)
--- NOTE | 2017-05-20 12:41 | PDOCDIS ---
Discharge Instructions CONDITION Patient Condition: Fair HOME CARE INSTRUCTIONS: Special Diet: Pureed-ADVANCE TOLERATED ACTIVITY: Activity Restrictions: No Restrictions FOLLOW UP/APPOINTMENTS Follow-up Plan F/U WITH YOUR PCP AND NEUROLOGIST IN 1-2 WEEKS DENIS QUEEN May 20, 2017 12:41
[2017-05-20] MEDS: METOPROLOL 25 MG TAB PO SCH (12:53)
[2017-05-20] MEDS ORDERED: METO50TA16 PO (13:48)
--- NOTE | 2017-05-20 20:56 | RADRPT ---
Vent Rate: 121 bpm RR Interval: 0 msec ME Interval: 0 msec QRS Duration: 84 msec QT Interval: 354 msec QTC Interval: 502 msec P-R-T Casey: 0 - 7 - 70 degrees Atrial fibrillation with rapid ventricular response Nonspecific ST abnormality , probably digitalis effect Abnormal ECG Electronically Signed By: Jeramy Shirley [id number]
--- NOTE | 2017-05-21 11:19 | RADRPT ---
Echocardiogram Report Patient Name: FLAQUITO CAROLINA Gender: Male Date: 1940 Study Date: 20-May-2017 Cable Lacer: Elías [place] Location: [id number] Ref. Physician: LYNDON VILLASEÑOR Quality: Adequate Procedures: Transthoracic echocardiogram with complete 2D, M-Mode, and doppler examination. Indications: New Onset Atrial Fibrillation. 2D/M Mode Doppler Measurement Value Normal Ranges Measurement Value Normal Ranges LVIDd 2D 4.6 3.5 - 5.6 cm AV Peak Rubén 0.8 m/sec LVIDs 2D 3.1 2.1 - 4.1 cm AV Peak PG 3.0 mmHg FS 2D 31.1 % LVOT Peak Rubén 0.7 m/sec LVPWd 2D 1.2 0.6 - 1.1 cm LVOT Peak PG 2.0 mmHg IVSd 2D 1.2 0.6 - 1.1 cm MV E Peak Rubén 0.5 m/sec IVS/LVPW 2D 1.0 MV A Peak Rubén 0.6 m/sec AoR Diam 2D 3.4 2.0 - 3.7 cm MV E/A 0.8 LA/Ao 2D 1 0 - 1 MV Decel Time 109 msec EDV 2D 94.8 cm3 MV E/A 0.8 ESV 2D 31.0 cm3 LA Dimen 2D 4.4 2.3 - 4.0 cm Findings Left Ventricle: Normal left ventricular systolic function. Normal left ventricular cavity size. Normal left ventricular wall thickness. Mild global left ventricular systolic dysfunction. Ejection fraction is visually estimated at 40 %. Tissue Doppler/Mitral Doppler indices are consistent with impaired relaxation (Stage I diastolic dysfunction). Right Ventricle: Normal right ventricular size. Normal right ventricular systolic function. Left Atrium: There is mild enlargement of left atrium. Right Atrium: The right atrium is normal in size. Mitral Valve: Mitral valve leaflets appear mildly thickened. Mild mitral annular calcification. Trace mitral regurgitation. Aortic Valve: No significant aortic stenosis or insufficiency. Aortic cusps appear mildly calcified. Tricuspid Valve: Tricuspid valve not well visualized. Unable to obtain RVSP due to minimal presence of tricuspid regurgitation. There is trace tricuspid regurgitation. Pulmonic Valve: Pulmonic valve not well visualized. There is trace pulmonic regurgitation. Pericardium: Normal pericardium with no significant pericardial effusion. Aorta: Normal aortic root. IVC: Normal size and normal respiratory collapse consistent with normal right atrial pressure. Conclusions 1.Normal left ventricular systolic function. Normal left ventricular cavity size. Normal left ventricular wall thickness. Mild global left ventricular systolic dysfunction. Ejection fraction is visually estimated at 40 %. Tissue Doppler/Mitral Doppler indices are consistent with impaired relaxation (Stage I diastolic dysfunction). 2.Tricuspid valve not well visualized. Unable to obtain RVSP due to minimal presence of tricuspid regurgitation. There is trace tricuspid regurgitation. 3.Mitral valve leaflets appear mildly thickened. Mild mitral annular calcification. Trace mitral regurgitation. Electronically Signed By: Kirit Dutton 21-May-2017 11:19:00 -0700 Patient Name: FLAQUITO CAROLINA Study Date: 20-May-2017 [id number]
== END 2017-05-20 14:20 | disposition home or self-care (01) | DRG 871 ==
LOC: E/R 14:17 → MS2 05-16 08:40 → TEL 05-17 17:25
PROVIDERS: ADMIT Family Medicine; ATTEND Family Medicine
DX: A41.9 Sepsis, unspecified organism (principal); J69.0 Pneumonitis due to inhalation of food and vomit; G92 Toxic encephalopathy; I48.0 Paroxysmal atrial fibrillation; N39.0 Urinary tract infection, site not specified; G40.901 Epilepsy, unspecified, not intractable, with status epilepticus; F10.231 Alcohol dependence with withdrawal delirium; I10 Essential (primary) hypertension; E16.1 Other hypoglycemia; I48.91 Unspecified atrial fibrillation; E16.2 Hypoglycemia, unspecified; E80.6 Other disorders of bilirubin metabolism; Z72.0 Tobacco use; R45.1 Restlessness and agitation; Z86.73 Personal history of transient ischemic attack (TIA), and cerebral infarction without residual deficits; K70.9 Alcoholic liver disease, unspecified
CPT/HCPCS: 36415; 36600; 70450; 70553; 71010; 80048; 80053; 80061; 80076; 80306; 80307; 81001; 82140; 82550; 82553; 82803; 82962; 83036; 83735; 84100; 84436; 84443; 84479; 84484; 85025; 85610; 85730; 87086; 92526; 92610; 93005; 93306; 94640; 94664; 95819; 96365; 96366; 96367; 96375; 96376; J0360; J1170; J1630; J1644; J1815; J1953; J2060; J2405; J2543; J2920; J3411; J3475; J3480; J7030; J7040; J7042; J7050

== ENCOUNTER 2018-07-17 07:20 | Day surgery (SDC) | END 2018-07-17 16:04 | disposition home or self-care (01) ==